=== PATIENT | female | born 1970 | race Caucasian/White ===

== ENCOUNTER 2024-07-21 20:15 | Outpatient (CLI) | payer OTHER, SELFPAY ==
--- OUTSIDE RECORDS SUMMARY | 2024-07-21 20:21 | XMS_ITS | Clinical Summary ---
Author Organization [employer] [facility] Address [place], [place] [address] Care Team Providers Care Optometric Tech Name Role Phone Morales Arreola MD Unavailable Nereida Pratt NP Primary Care Provider Freya Anton Unavailable Frank Avila MD Unavailable Reina Monte RN Unavailable Allergies Active Allergy Reactions Criticality Noted Date Comments Chlorhexidine Hives 01/28/2018 Codeine Hives,Nausea Only 07/01/2007 Ketorolac Tromethamine Rash,Edema High 12/19/2017 Latex Rash Low 05/15/2014 Only if exposed for long periods of time per pt 11/08/23 Nitrofurantoin Hives 07/01/2007 Sulfamethoxazole-Trimetho prim Hives 07/01/2007 Sulfasalazine Hives 06/16/2011 Medications Medication Sig Dispensed Refills Start Date End Date Status Cranberry 400 mg capsule Take by mouth. Once daily 0 06/07/20 17 Active cholecalciferol (VITAMIN D3) 1,000 unit tablet Take by mouth. Active naproxen (ALEVE) 220 mg tablet Take 1 tablet by mouth every 8 hours if needed for Headache. 100 tablet 04/06/20 20 Active topiramate (TOPAMAX) 100 mg tablet Take 100 mg by mouth 2 times daily. 08/10/20 21 Active loperamide (IMODIUM) 2 mg capsuleIndications :Loose stools Take 4mg by mouth with 1st loose stool, then 2mg with each subsequent loose stool. Max 16 mg in 24 hrs 30 Capsule 10/13/20 21 Active Biotin 10,000 mcg capsule take once by oral route everyday in the a.m. 09/08/20 22 Active cyanocobalamin (VITAMIN B12) 500 mcg tablet take 1 tablet by oral route once everyday in the a.m. 09/08/20 22 Active Magnesium Gluconate 30 mg (550 mg) tab take 1 tablet by oral route every day in the p.m. 09/08/20 22 Active gabapentin (NEURONTIN) 300 mg capsule TAKE ONE CAPSULE BY MOUTH EVERY DAY FOR 3 DAYS THEN TAKE ONE CAPSULE BY MOUTH TWICE A DAY FOR 3 DAYS THEN TAKE ONE CAPSULE BY MOUTH THREE TI 06/12/20 23 Active cyclobenzaprine (FLEXERIL) 10 mg tabletIndications: Migraine syndrome Take 1/2 tab daily at bedtime. 30 Tablet 11 10/30/20 23 Active prochlorperazine (COMPAZINE) 10 mg tabletIndications: Nausea Take 1 Tablet (10 mg) by mouth every 6 hours if needed for Nausea/Vomiting. 30 Tablet 10/30/20 23 Active Cimetidine (TAGAMET) 800 mg tabletIndications: Marginal ulcer Take 1 Tablet (800 mg) by mouth at bedtime. 90 Tablet 3 10/30/20 23 Active pseudoephedrine HCl (SUDAFED ORAL) Take by mouth. Ac tive loratadine (CLARITIN) 10 mg tabletIndications: Seasonal allergies TAKE ONE TABLET BY MOUTH EVERY DAY . 90 Tablet 1 12/21/19 24 Active omeprazole (PRILOSEC) 40 mg Delayed-Release capsuleIndications :Gastric ulcer, unspecified chronicity, unspecified whether gastric ulcer hemorrhage or perforation present TAKE ONE CAPSULE BY MOUTH TWICE A DAY 180 Capsule 2 01/20/20 24 Active Tnndy-3-YKD-EPA-Fi sh Oil (Fish OiL) 1,000 mg (120 mg-180 mg) cap Take 2 Capsules by mouth. Active MULTIVITAMIN ORAL Take by mouth. Act clarence selenium 200 mcg cap Take by mouth. Active magnesium carb,citrate,oxide (MAGNESIUM COMPLEX ORAL) Take by mouth. Active Digestive Enzymes capsule Take by mouth. Active medication order composer Take 2 capsules. by mouth once daily. Sandra support Active medication order composer Take 1 Capsule by mouth once daily. Motility Activator Active busPIRone (BUSPAR) 15 mg tabletIndications: Anxiety Take 1 Tablet (15 mg) by mouth two times daily. 60 Tablet 5 05/08/20 24 Active Calcium Citrate 250 mg calcium tabletIndications: S/P gastric bypass TAKE TWO TABLETS BY MOUTH EVERY DAY . 180 Tablet 3 05/13/20 24 Active semaglutide (Wegovy) 0.25 mg/0.5 mL penIndications:Enc ounter for weight loss counseling Inject 0.25 mg subcutaneous once weekly. 2 mL 05/19/20 24 Active naratriptan (AMERGE) 2.5 mg tabletIndications: Migraine syndrome TAKE ONE TABLET BY MOUTH AT ONSET OF MIGRAINE, MAY REPEAT ONCE, GIVE AT A MINIMUM OF 4 HOURS APART MAXIMUM DOSE OF 5 MG IN 24 HOURS 30 Tablet 5 05/27/20 24 Active metFORMIN (GLUCOPHAGE XR) 500 mg Extended-Release tablet 1 tablet with dinner daily for 2 weeks then 2 tablets with dinner 06/25/20 24 Active nystatin-triamcino lone cream APPLY TO AFFECTED AREA(S) EVERY 4 TO 5 HOURS FOR 7 TO 14 DAYS 05/25/20 24 Active levothyroxine (SYNTHROID) 175 mcg tabletIndications: Acquired hypothyroidism Take 1 Tablet (175 mcg) by mouth before breakfast. 90 Tablet 3 07/01/20 24 Active zolpidem (AMBIEN) 10 mg tabletIndications: Insomnia, idiopathic TAKE ONE TABLET BY MOUTH AT BEDTIME 30 Tablet 07/07/20 24 Active citalopram (CELEXA) 10 mg tabletIndications: Anxiety and depression TAKE ONE TABLET BY MOUTH EVERY MORNING 30 Tablet 07/20/20 24 Active citalopram (CELEXA) 20 mg tabletIndications: Anxiety Take 1.5 Tablets (30 mg) by mouth every morning. 135 Tablet 3 10/30/20 23 024 Discontinued(*M ed complete/Regime n complete/Level of care change) zolpidem (AMBIEN) 10 mg tabletIndications: Insomnia, idiopathic TAKE ONE TABLET BY MOUTH AT BEDTIME 90 Tablet 3 12/24/19 24 024 Discontinued levothyroxine (SYNTHROID) 150 mcg tabletIndications: Acquired hypothyroidism Take 1 Tablet (150 mcg) by mouth before breakfast. 90 Tablet 3 06/04/ 024 Discontinued(*M ed complete/Regime n complete/Level of care change) citalopram (CELEXA) 10 mg tabletIndications: Anxiety and depression Take 1 Tablet (10 mg) by mouth once daily in the morning. 30 Tablet 06/30/20 24 024 Discontinued cephalexin (KEFLEX) 500 mg capsuleIndications :Skin infection Take 1 Capsule (500 mg) by mouth three times daily for 7 days. 21 Capsule 06/30/20 24 024 Active Problems Problem Noted Date Diagnosed Date Anal fissure 07/10/2018 History of lung cancer 03/07/2018 Anxiety and depression 10/18/2017 Fracture of proximal end of femur, right, closed, initial encounter 10/18/2017 Chronic right-sided low back pain with right-tressa ed sciatica 10/18/2017 Insomnia 10/18/2017 Axillary mass, left 10/16/2017 Metastatic cancer to bone 10/15/2017 Overview: Right hip-- had removal, radiation and replacement of hip. In remission. Bulge of lumbar discs L3-S1 without myelopathy 1 11/27/2016 Trochanteric bursitis of right hip 09/27/2017 Acute right-sided low back pain with right-sided sciatica 08/22/2017 Vaginal atrophy 03/16/2017 Iron deficiency anemia 05/22/2013 Migraine, unspecified, witho ut mention of intractable migraine without mention of status migrainosus 08/21/2007 Dysthymic disorder 08/21/2007 Hypothyroidism 08/21/2007 S/P gastric bypass Overview: Beginning weight 213 lb Lactose intolerance GERD (gastroesophageal reflux disease) Vitamin D deficiency Marginal ulcer Resolved Problems Problem Noted Date Diagnosed Date Resolved Date Abnormal mammogram 08/22/2017 7 Intractable migraine without aura and with status migrainosus 03/06/2017 10/18/2017 Elevated glucose 12/07/2016 10/18/2017 JOSUE (generalized anxiety disorder) 09/15/2015 10/18/2017 Anxiety 08/09/2015 09/15/2015 Menorrhagia 05/22/2014 03/12/2015 Encounters Date Type Department Care Team Description 07/17/[address] [address] Sergey Jiménez NP Refill Request (Zolpidem) 07/17/[address] [address] Nereida Pratt NP Refill Request (Citalopram) 07/16/2024 Telephone [facility] [address] [place] [address] Araceli Hebert NP Appointment 07/15/2024 1:15 PM CDT Telemedicine [facility] [address] [place] [address] Araceli Hebert NP Telehealth (Consult =sleep concerns) 07/14/2024 Travel 07/09/2024 2:00 PM CDT Ancillary Procedure [address] [address] 07/09/2024 12:25 PM CDT Telemedicine [facility] [address] [place] [address] Leland Nieto MD Shoulder Pain/problem 07/09/2024 10:45 AM CDT Telemedicine [facility] [address] [place] [address] Leland Nieto MD Shoulder Pain/problem 07/09/2024 Travel 07/08/2024 Nurse Triage [address] [address] Nereida Pratt NP Shoulder Pain/problem 07/08/[address] [address] Nereida Pratt NP Imaging (Xray- right shoulder) 07/04/[address] [address] Nereida Pratt NP Refill Request (Zolpidem) 06/30/2024 1:10 PM CDT Office Visit [address] [place] [address] Nereida Pratt NP Recheck (thyroid) 06/30/2024 Travel 06/27/2024 Travel 06/25/[address] [place] [address] Nereida Pratt NP Form 06/18/2024 1:00 PM CDT Patient Outreach [address] [address] Focused Care Management 06/18/[address] [address] Nereida Pratt NP Results (Dexa scan) 06/17/2024 2:00 PM CDT Ancillary Procedure [address] [address] 06/17/2024 Travel 06/12/2024 Orders Only [facility] Scanner 1 scan: (1-Ord) [facility] 06/12/2024 Transcribe Orders [facility] [address] [place] [address] Araceli Jaimes PA 05/25/[address] [address] Nereida Pratt NP Refill Request (Naratriptan) 05/21/2024 1:00 PM CDT Patient Outreach [address] [address] Focused Care Management (Anxiety/Acquired hypothyroidism) 05/20/2024 10:30 AM CDT Nutrition/Pocketbook Maker [facility] [address] [place] [address] Medical Nutrition Therapy; Telehealth 05/20/2024 Travel 05/19/[address] [address] Nereida Pratt NP Medication Management (Pharmacy Clarification - Wegovy) 05/11/[address] [address] Nereida Pratt NP Refill Request (Calcium Citrate) 05/06/[address] [address] Nereida Pratt NP Error-please disregard 05/05/2024 Telephone [facility] [address] [place] [address] Mitchell Smith MD Referral 04/28/2024 1:30 PM CDT Office Visit [address] [address] eNreida Pratt NP Medication Management (thyroid) 04/28/[address] [address] Nereida Pratt NP Questions (Why provider thinks her thyroid not getting better?) 04/28/2024 Travel 04/23/2024 1:00 PM CDT Patient Outreach [address] [address] Focused Care Management (Anxiety and depression/Acquired hypothyroidism) 04/23/2024 Travel from Last 3 Months Immunizations Name Administration Dates Next Due AMB Influenza, IIV4 PF (=>6 mos Flulaval,Fluzone Fluarix)(Flu Clinic Only) 08/21/2014 COVID-19 vaccine (Moderna 100mcg/0.5mL) PF, MDV 02/09/2021,01/11/2021 Hepatitis B (Adult) 12/27/1996,07/31/1996,1995 Hepatitis B, Unspecified 07/01/2004 Influenza Virus, Unspecified 08/27/2019, 09/26/2018,08/11/2009,2007 Influenza, IIV3 (Age 6-35 mos) 0,08/27/2019,09/26/2018,2009 Influenza, IIV3 (Age >=3 years) 08/09/20 12,08/04/2011,08/26/2010,2008,09/02/2008,10/23/2007 Influenza, IIV4 12/18/2023, 2,08/29/2021,2017,08/14/2017,09/01/2016,09/24/2015,0 08/21/2014 Influenza,LAIV4 Live Intrana tomas (Flumist) 08/08/2013 MMR 08/05/2008,07/11/1995 Pneumococcal Conj 20-valent (Prevnar 20) 06/30/2024 Pneumococcal Poly,23-Valent (Pneumovax) 03/12/2015 Pneumococcal conj 13-Valent (Prevnar 13) 08/15/2018,10/29/2017 Td (Age >=7 Years) 08/08/2000 Tdap 02/03/2020,02/18/2010 Tuberculin (PPD) 06/16/2004 Zoster (Shingrix-RZV, recombinant) 08/01/2022, Family History Medical History Relation Name Comments Diabetes Father Hypertension Father Other Father cataracts Cancer-breast Maternal Aunt Relation Name Status Comments Brother Alive x3 Daughter Alive x4 Father Alive Maternal Aunt Maternal Grandfather Maternal Grandmother Alive Mother Alive Paternal Grandfather Paternal Grandmother Sister Alive x1 Social History Tobacco Use Types Packs/Day Years Used Date Smoking Tobacco: Never Passive Smoke Exposure: Never Smokeless Tobacco: Never Tobacco Cessation:Counseling Given: Not Answered Comments:Pt states nonsmoker and never smoked or history of smoking/vap or chew 11/08/23 Alcohol Use Standard Drinks/Week Comments Yes 0 (1 standard drink = 0.6 oz pur e alcohol) socially /monthly PHQ-2 Answer Date Recorded PHQ-2 TOTAL SCORE 4 04/06/2024 Social Connections Answer Date Recorded Frequency of Communication with Friends and Fami ly 0 06/30/2024 Financial Resource Strain Answer Date R ecorded Difficulty of Paying Living Expenses 3 06/30/2024 Difficulty of Paying Living Expenses Not on file 06/30/2024 Food Insecurity Answer Date Recorded Worried About Running Out of Food in the Last Ye ar 1 06/30/2024 Transportation Needs Answer Date Record ed Lack of Transportation (Medical) 1 06/30/2024 Housing Stability Answer Date Recorded Unable to Pay for Housing in the Last Year 1 06/30/2024 Sex and Gender Information Value Date Recorded Sex Assigned at Female 12/16/2020 10:52 AM [facility] DRIVER Gender Identity Female 12/16/2020 10:52 AM [facility] DRIVER Sexual Orientation Straight 12/16/2020 10 :52 AM [facility] DRIVER Obstetrics History Para Term AB IAB SAB Ectopic Multiple Livin g Live Births 4 4 4 Date Outcome GA Total Labor Labor/2nd/3rd Weight Sex Type Anes PTL Caryn A1 A5 Name Clin Para Para Para Para Last Filed Vital Signs Vital Sign Reading Time Taken Comments Blood Pressure 106/62 06/30/2024 1:32 PM CDT Pulse 84 06/30/2024 1:32 PM CDT Temperature 36.8 ??C (98.2 ??F) 11/08/2023 12:[address] Respiratory Rate 12 06/30/2024 1:32 PM CDT Oxygen Saturation 98% 03/20/2024 1:20 PM CDT Inhaled Oxygen Concentration - - Weight 71.2 kg (157 lb) 06/30/2024 1:32 PM CDT Height 154.9 cm (5' 1) 04/28/2024 1:42 PM CDT Body Mass Index 29.66 04/28/2024 1:42 PM CDT Plan of Treatment Upcoming Encounters Date Type Department Care Team (Late st Contact Info) Description 08/06/2024 2:30 PM CDT Preop Visit [facility] [address] [place] [address] Britt Varghese MD [address] [place] [address] 08/18/2024 1:45 PM CDT Hospital Encounter [facility] [address] [facility] [place] [address] Luis Vivas MD [address] [facility] [address] [place] [address] 08/18/2024 1:45 PM CDT - 08/18/2024 7:24 PM CDT Surgery [facility] [address] [place] [address] Luis Vivas MD [address] [facility] [address] [place] [address] Anterior Cervical Discectomy/Fusion Level: C3-T1 Side: Bilateral 09/11/2024 4:00 PM CDT Office Visit [address] [phone] Miriam Dutta MD [address] [facility] [address] [place] [address] 09/16/2024 1:15 PM CDT Telemedicine [facility] [address] [place] [address] Araceli Hebert NP [address] [place] [address] 09/23/2024 1:20 PM CDT Office Visit [address] [phone] Nereida Pratt, RILEY [address] [place], [place] [phone] Scheduled Procedures Name Priority Associated Diagnoses Date/Ti me FUSION DISCECTOMY ANTERIOR CERVICAL 05 Stenosis, Radiculopathy 08/18/2024 1:45 PM CDT DECOMPRESSION SPINE LEVEL 05 Stenosis, Radiculopathy 08/18/2024 1:45 PM CDT FUSION POSTERIOR SPINE LEVEL 05 Stenosis, Radiculopathy 08/18/2024 1:45 PM CDT Health Maintenance Due Date Last Done Comments COVID-19 vaccine series ( season) 2023 11/23/2021, 02/09/2021, 01/11/2021 Influenza for age 50-64 07/27/2024 12/18/19 24, 09/21/2022, 08/29/2021, Additional history exists Mammogram for age 45-75 09/10/2024 09/10/20 23, 08/29/2022, 06/01/2021, Additional history exists Depression screening for age 12+ 04/06/2025 04/06/2024, 04/03/2024, 03/27/2024, Additional history exists BMI (ht and wt on same day) for age 18+ 04/28/2025 04/28/2024, 10/30/2023, 06/19/2023, Additional history exists Lipids for age 45-75 08/01/2027 08/01/2022, 04/14/2016, 03/12/2015, Additional history exists Tetanus booster 02/02/2030 02/03/2020, 01/25, 08/08/2000 Colonoscopy through age 75 01/16/2033 01/16/2023 HIV for age 15-65 Completed 11/27/2017, 01/15/2017 Hepatitis C screening for ag e 18-79 Completed 09/10/2019 Tdap Completed 02/03/2020, 02/18/2010 Zoster (shingles) series for age 50+ Completed 08/01/2022, 05/25/2022 Pneumococcal series for age 6-64 Completed 06/30/2024, 08/15/2018, 10/29/2017, Additional history exists Procedures Procedure Name Priority Date/Time Associated Diagnosis Comments XR SHOULDER 3 VIEWS RIGHT Routine 07/09/2024 2:11 PM CDT Right shoulder pain, unspecified chronicity TSH Routine 06/30/2024 2:51 PM CDT Acquired hypothyroidism XR DXA BONE DENSITY 2 SITES AXIAL Routine 06/17/2024 2:43 PM CDT Osteopenia, unspecified location SCAN-ELECTROMYOGRA M EMG 06/12/2024 12:00 AM CDT TSH Routine 04/28/2024 2:16 PM CDT Acquired hypothyroidism XR MAMMO RAMOS BILAT SCREEN Routine 09/10/2023 2:25 PM CDT Encounter for other screening for malignant neoplasm of breast SCAN-COLONOSCOPY 01/16/2023 10:3 0 AM [facility] DRIVER LIPID PANEL Routine 08/01/2022 1:48 PM CDT Lipid screening ACUTE HEPATITIS PANEL Add On 09/10/2019 2:32 PM CDT Abnormal liver function test ANTI HIV 1/2 Routine 11/27/2017 12:58 PM [facility] A DRIVER Screening for STD (sexually transmitted disease) from Last 3 Months or Most Recently Relevant to Health Maintenance Results * XR SHOULDER 3 VIEWS RIGHT (07/09/2024 2:11 PM CDT) Anatomical Region Laterality Modality SHOULDERS, SHOULDER R Computed R adiography 07/10/2024 6:46 AM CDT Narrative 07/10/2024 6:46 AM CDT For Patients: ??As a result of the Cures Act, medical imaging exams and procedure reports are released immediately into your electronic medical record. ??You may view this report before your referring provider. ??If you have questions, please contact your health care provider. INDICATION: Chronic right shoulder pain. TECHNIQUE: Three views right shoulder. FINDINGS: Mild glenohumeral and AC joint arthropathy. Soft tissue spurring lateral acromion and lateral articular surface of the humeral head. No fracture, dislocation or lytic bone destruction. Dictated by Maria Del Carmen Kong MD @ 07/10/2024 6:46:24 AM (Electronically Signed) Procedure Note Toi Kong MD - 07/10/2024 For Patients: As a result of the Cures Act, medical imagingexams and procedure reports are released immediately into your electronicmedical record. You may view this report before your referring provider.If you have questions, please contact your health care provider. INDICATION: Chronic right shoulder pain. TECHNIQUE: Three views right shoulder. FINDINGS: Mild glenohumeral and AC joint arthropathy. Soft tissue spurring lateralacromion and lateral articular surface of the humeral head. No fracture,dislocation or lytic bone destruction. Dictated by Maria Del Carmen Kong MD @ 07/10/2024 6:46:24 AM (Electronically Signed) Leland Nieto MD GENERAL IMAGING * (ABNORMAL) TSH (06/30/2024 2:51 PM CDT) Only the most recent of2 resultswithin the time period is included. TSH 4.55(H) 0.27 - 4.20 uIU/mL 06/30/2024 4:20 PM CDT [facility] Blood BLOOD SPECIMEN / Unknown Venipuncture / Unknown 06/30/2024 2:51 PM CDT 06/30/2024 2:54 PM CDT [facility] - 06/30/2024 4:20 PM CDT In Adults, TSH values between 5.00 and 10.00 uIU/ml do not necessarily indicate the presence of Hypothyroidism. Correlation with clinical findings such as presence of goiter and/or Thyroperoxidase (TPO) Antibody may be helpful. For more information please refer to FAWAD 2004; 291: 228-238. Nereida Pratt NP CHEMISTRY [facility] [address] [place] [address] * XR DXA BONE DENSITY 2 SITES AXIAL (06/17/2024 2:43 PM CDT) Anatomical Region Laterality Modality Spine, HIPS, HIPL, HIPR Computed Radiography 06/17/2024 4:42 PM CDT Impressions 06/18/2024 8:33 AM CDT Osteopenia. RECOMMENDATIONS: ??The National Osteoporosis Foundation recommends pharmacologic treatment for patients with T-scores of -2.5 or less, patients with prior history of fragility fractures, or patients with 10-year probability of greater than 3% at hips or greater than 20% of suffering major osteoporotic fractures. Recommend continued optimization of calcium and vitamin D intake through dietary means and/or supplementation and regular exercise. Renzo Weeks M.D. Diagnostic/Neuroradiologist [email or web address] LILIAI/loan Narrative 06/18/2024 8:33 AM CDT For Patients: Results are automatically released to your [employer] account once available, in compliance with federal regulations. This means that you may see your results before your provider has had a chance to review them. Please allow 2-3 business days for your provider to comment on the results. XR DXA Bone Mineral Density (BMD) EXAM LOCATION: [address] [phone] PATIENT NAME: Karin Edwards DATE OF : 1970 EXAM DATE: 06/17/2024 REQUESTING PROVIDER: Araceli Jaimes PA GENDER AT : female HEIGHT: 61 inches WEIGHT: 157 pounds MENOPAUSAL STATUS: Postmenopausal ?? RACE/ETHNICITY: White ?? RISK FACTORS: Bariatric Surgery, History of Fragility Fracture (at a major site), White Race, and Right Hip Surgery CURRENT MEDICATION FOR BONE LOSS: NONE INDICATION: Follow-up of existing osteopenia COMPARISON DATE(S): None DXA scans are compared to prior studies for a patient only when the two (or more) studies were performed on the same scanner. It is not possible to compare data generated on one scanner to data from another because there are not standards in DXA equipment. This applies even if the two scanners are made by the same clinical microbiologist. PROCEDURE: Dual-energy x-ray absorptiometry performed with routine technique. Reporting is completed in the form of a T-score. The T-score represents the standard deviation from peak bone mass based on young healthy adult. A Z-score is used for diagnosis in premenopausal women, and for men under the age of 50. FINDINGS: RESULT LUMBAR SPINE L1 - L4 BMD: 1.129 g/cm2 T-Score: - 0.4 Z-Score: + 0.0 RESULTS FEMUR Left femoral neck BMD: 0.845 g/cm2 T-Score: - 1.4 Z-Score: - 0.6 Left total hip BMD: 0.888 g/cm2 T-Score: - 1.0 Z-Score: - 0.5 WHO criteria: Normal: T-score at or above -1 SD Osteopenia: T-score between -1.1 and -2.4 SD Osteoporosis: T-score at or below -2.5 SD LEFT: FRAX RISK CALCULATION (USED FOR OSTEOPENIA ONLY): 10-year probability of major osteoporotic fracture: 5.5%. 10-year probability of hip fracture: 0.4%. Araceli CARTER DEXA * SCAN-ELECTROMYOGRAM EMG (06/12/2024 12:00 AM CDT) Scanner OTHER * XR MAMMO RAMOS BILAT SCREEN (09/10/2023 2:25 PM CDT) Anatomical Region Laterality Modality BREASTS, Breast Left, Breast Right Bilateral Mammography Impressions 09/11/2023 6:35 AM CDT ??There is no radiographic evidence for malignancy. ??Recommend annual mammograms. MAMMOGRAM ASSESSMENT: ??ACR 1 Negative PATIENTS: You will also receive a letter with your examination results in an easy to read format. ??If you have questions about your results, please contact your referring provider. Narrative 09/11/2023 6:35 AM CDT For Patients: As a result of the Century Cures Act, medical imaging exams and procedure reports are released immediately into your electronic medical record. You may view this report before your referring provider. If you have questions, please contact your health care provider. XR MAMMO RAMOS BILAT SCREEN [[id number]] CLINICAL HISTORY: ??This is an asymptomatic 53 y.o. patient. INDICATION FOR EXAM: Mammogram Screening. TECHNIQUE: CC & MLO views were obtained. ??This study was evaluated with the assistance of Computer-Aided Detection. Breast Tomosynthesis was used in interpretation. COMPARISON FILM: Yes 08/29/22 ? FINDINGS: ??The breasts are heterogeneously dense, which may obscure small masses. There are no dominant masses, suspicious micro calcifications or areas of architectural distortion. Nereida Pratt NP MAMMO * SCAN-COLONOSCOPY (01/16/2023 10:30 AM [facility] A DRIVER) Narrative Procedure Note Tran, Lex Brantley, MD - 01/16/2023 9:40 AM CST [facility] [address] [place] [address], [address], [place] [address] Patient Name: Karin Edwards (Jenni) Gender: Female Exam Date: 01/16/2023 Visit Number: [id number] Age: 52 Years 7 Months Date of : 1970 Attending MD: Lex Tran MD Medical Record#: [id number] ----- Procedure: Colonoscopy Indications: Colorectal cancer screening Referring MD: Referral Self Primary MD: Nereida Pratt FINANCIAL ANALYST INTERN Medications: Admitting Medications: 0.9% Normal Saline at [facility] Intra Procedure Medications: Patient received monitored anesthesia care. Complications: No immediate complications Procedure: An examination of the heart and lungs was performed and found to be withinacceptable limits. The patient was therefore deemed a reasonablecandidate for endoscopy and monitored anesthesia care. The risks and benefits of the procedure were explained to the patient.After obtaining informed consent, the patient received monitoredanesthesia care and I passed the scope without difficulty via the rectum to the cecum. The appendiceal orificeand ic valve were identified. The scope was retroflexed during theexamination The quality of the prep was good (Flavio/Gat Double Split). This was a complete examination throughout the entire colon. Findings: Diverticulosis. Location: - ascending colon. Size: medium.Quantity: several. Anal canal: normal Remainder of the exam is normal. Impression: Diverticulosis of colon Plan Repeat colonoscopy in 10 years for colon cancer screening. If you have signs or symptoms of lower GI illness or a new diagnosis ofcolon cancer in an immediate family member, you should contact your GIprovider or your primary provider to discuss whether your next examshould be repeated sooner. We will attempt to contact you at appropriate intervals via U.S. mail. Wemay not be able to find you or contact you at that time, therefore youshould know that the responsibility for following our recommendation restswith you. If you don't hear from us at the time your procedure is due,please contact our office to schedule an appointment. If your contactinformation should change, please contact our office so that we can updateyour records. Electronically signed by: Lex Tran MD 01/16/2023 Medications: Medication Dose Sig Description PRN Status PRN Reason Comments Aleve UNKNOWN take 1 tablet by oral route once every day as needed Ntaking as directed biotin 10,000 mcg capsule 10,000 mcg take once by oral route everyday inthe a.m. N taking as directed calcium citrate 200 mg (950 mg) tablet 200 mg (950 mg) N taking asdirected cimetidine 800 mg tablet 800 mg take 1 tablet by oral route every day inthe p.m. N taking as directed citalopram 40 mg tablet 40 mg take 1 tablet by oral route every day inthe a.m. N taking as directed cranberry 500 mg capsule 500 mg take everyday in the a.m. N taking asdirected Herbal Medications/Supplements unknown unknown Refresh eyedrops drop oncein each eyes in the a.m. N taking as directed iron 325 mg (65 mg iron) tablet 325 mg (65 mg iron) take 1 tablet by oralroute every day in the a.m. N taking as directed levothyroxine 112 mcg capsule 112 mcg take 1 capsule by oral route everyday in the a.m. N taking as directed magnesium UNKNOWN take 1 tablet by oral route every day in the p.m. Ntaking as directed naratriptan 2.5 mg tablet 2.5 mg take 1 tablet by oral route once mayrepeat after 4 hours N taking as directed omeprazole 40 mg capsule,delayed release 40 mg take 1 capsule by oralroute 2 times daily- 30 minutes before breakfast and 30 minutes beforedinner N taking as directed omeprazole 20 mg tablet,delayed release 20 mg take 1 tablet by oral routeevery day in the a.m. N taking as directed topiramate UNKNOWN (400 mg) take 4 tablet by oral route 2 a.m. and 2 p.m.every day N taking as directed cyanocobalamin (vit B-12) 500 mcg tablet 500 mcg take 1 tablet by oralroute once everyday in the a.m. N taking as directed Vitamin D3 125 mcg (5,000 unit) tablet 125 mcg (5,000 unit) take 1 tabletby oral route every day in the a.m. N taking as directed zolpidem 10 mg tablet 10 mg take 1 tablet by oral route every day in thep.m. N taking as directed Allergies: Medication Name Ingredient Reaction Comment Macrobid NITROFURANTOIN MACROCRYSTALLINE Sulfa SULFA (SULFONAMIDE ANTIBIOTICS) Rash LATEX Rash Vital Signs: Date Time Systolic Diastolic Height Weight BMI 01/16/2023 10:00 AM 109 60 61 in 146.39 27.70 Race: White Preferred Language: [place] cc: Nereida Pratt [facility] [phone] Lex Tran MD OTHER * LIPID PANEL (08/01/2022 1:48 PM CDT) [facility] CHOLESTEROL,TOTAL 199 100 - 199 mg/dL 08/01/2022 2:32 PM T [facility] TRIGLYCERIDES 105 <150 mg/dL 08/01/2022 2:32 PM T [facility] HDL CHOLESTEROL 59 >40 mg/dL 2:32 PM T [facility] NON-HDL CHOLESTEROL 140 <145 mg/dl 08/01/2022 2:32 PM T [facility] CHOL/HDL RATIO 3.37 <4.50 08/01/2022 2:32 PM T [facility] LDL CHOLESTEROL 119 <=130 mg/dL 08/01/2022 2:32 PM CDT [facility] VLDL CHOLESTEROL 21 <=30 mg/dL 08/01/2022 2:32 PM CDT [facility] PROVIDER ORDERED STATUS RANDOM 08/01/2022 2:32 PM CDT [facility] Blood BLOOD SPECIMEN / Unknown Venipuncture / Unknown 08/01/2022 1:48 PM CDT 08/01/2022 1:49 PM CDT Nereida Pratt COMPO CONVEYOR OPERATOR CHEMISTRY [facility] [address] [place] [address] * ACUTE HEPATITIS PANEL (09/10/2019 2:32 PM CDT) HEPATITIS C ANTIBODY Non-Reactive Non-Reactive 09/10/2019 6:48 PM CDT [facility] Comment:Antibodies to HCV no t detected; does not exclude the possibility of exposure to HCV. IGM ANTI HAV Non-Reactive Non-Reactive 09/10/20 19 6:48 PM CDT [facility] HBSAG Nonreactive Nonreactive 09/10/2019 6:48 PM CDT [facility] IGM ANTI HBC Non-Reactive Non-Reactive 09/10/20 19 6:48 PM CDT [facility] Blood BLOOD SPECIMEN / Unknown Venipuncture / Unknown 09/10/2019 2:32 PM CDT 09/10/2019 2:34 PM CDT Narrative [facility] - 09/10/2019 6:48 PM CDT Anti-HBc IgM not detected. Does not exclude the possibility of exposure to or infection with HBV. Camilla Mckenna MD SEND OUTS Performing Organization Address City/[facility]/ZIP Co de Phone Number [facility] [address] [place] [address], [place] * ANTI HIV 1/2 (11/27/2017 12:58 PM PORT CDL A DRIVER) HIV-1/HIV-2 ANTIBODY Non-Reacti ve Non-Reacti ve 11/27/2017 8:53 PM PORT CDL A DRIVER [facility] Blood BLOOD SPECIMEN / Unknown Venipuncture / Unknown 11/27/2017 12:58 PM PORT CDL A DRIVER 11/27/2017 12:58 PM PORT CDL A DRIVER Narrative [facility] - 11/27/2017 8:53 PM PORT CDL A DRIVER HIV-1 p24 and HIV-1/HIV-2 Ab not detected Ravinder CARTER SEND OUTS [facility] [address] [place] [address], from Last 3 Months or Most Recently Relevant to Health Maintenance Advance Directives * Full Code (Latest Code Status on File) Date Activated Date Inactivated Comments 10/04/2021 11:08 AM 10/04/2021 3:24 PM Question Answer Comments Code Status Discussion: Discussed * Full Code Date Activated Date Inactivated Comments 02/11/2019 6:40 AM 02/11/2019 12:39 PM Question Answer Comments Code Status Discussion: Not Discussed * Full Code Date Activated Date Inactivated Comments 10/18/2017 1:31 AM 10/18/2017 12:21 PM Question Answer Comments Code Status Discussion: Discussed * Full Code Date Activated Date Inactivated Comments 05/25/2014 9:43 AM 05/25/2014 2:34 PM Care Teams Optometric Tech Relationship Specialty Start Date End Date Nereida Pratt NP [address] [place] [address] PCP - General Family Practice 12/24/17 Morales Arreola MD [address] [place] [address] Rheumatology Rheumatology 07/20/17 Freya Anton MBBS [address] [address] Internal Medicine 10/15/18 Frank Avila MD [address] [place] [address] Hematology 05/30/22 Reina Mnote, DIO [address] [place] [address] Registered Nurse 04/03/24
--- OUTSIDE RECORDS SUMMARY | 2024-07-21 20:21 | XMS_ITS | Encounter Summary ---
Author Organization [facility] Address [address] [place] [phone] Phone Care Team Providers Care Environmental Web Crawler Name Role Phone Nereida Pratt APRN, WIRER MAINTENANCE Primary Care Provi lowell Reason for Visit * Prior Authorization (Routine) - Closed Specialty Diagnoses / Procedures Referred By Jhon cooper Referred To Contact Radiology / RADIOLOGY Diagnoses Headache, unspecified Other chronic pain Malignant neoplasm of unspecified part of right bronchus or lung Cervicalgia Chronic nonintractable headache, unspecified headache type [R51.9, G89.29] Neck pain [M54.2] Adenocarcinoma of right lung, stage 4 (CMS/HHS) [C34.91] Procedures CHG MRI BRAIN BRAIN STEM W/O W/CONTRAST MATERIAL CHG MRI ORBIT FACE & NECK W/O & W/CONTRAST MATRL MR NECK W/O + W/CONTRAST [51030 (CPT??)] Mri [facility] [address] [place] [address] [address] [place] [address] Referral ID Status Reason Start Date Expiration Date Visits Re quested Visits Authorized [id number] Closed 2 2 Encounter Details Date Type Department Care Team (Latest Contact Info) Description 06/08/2024 7:36 AM CDT - 06/08/2024 11:59 PM CDT Hospital Encounter [facility] MRI [address] [place], [place] [id number] Pradip Sampson MD [address] [place] [id number] Discharge Disposition: Discharged to home or self care Social History Tobacco Use Types Packs/Day Years Used Date Smoking Tobacco: Former Cigarettes 1 12 1 12/30/1984 - 10/29/1995 Smokeless Tobacco: Former Alcohol Use Standard Drinks/Week Comments Yes 1 (1 standard drink = 0.6 oz pur e alcohol) PHQ-2 Answer Date Recorded PHQ-2 Subtotal 0 10/26/2020 Sex and Gender Information Value Date Recorded Sex Assigned at Female 05/09/2021 9:29 AM CDT Gender Identity Female 05/09/2021 9:29 AM CDT Sexual Orientation Straight 05/09/2021 9: 29 AM CDT documented as of this encounter Medications at Time of Discharge Medication Sig Dispensed Refills Start Date End Date levothyroxine (SYNTHROID) 125 mcg oral tablet Take 1 tablet (125 mcg) by mouth daily before morning meal. 03/23/2024 MAGNESIUM MALATE ORAL Take by mouth. Biotin 10 MG oral capsule take once by oral route everyday in the a.m. 09/08/2022 loperamide (IMODIUM) 2 mg oral capsuleIndications:Jess nocarcinoma of right lung, stage 4 (CMS/HHS) Take 2 capsules (4 mg) by mouth at onset of symptoms, then Take 1 capsule (2 mg) by mouth as needed for diarrhea. Do NOT take more than 8 capsules (16 mg) in 24 hours. 50 capsule 12 07/13/2022 zolpidem (AMBIEN) 10 mg oral TABS Take 1 tablet (10 mg) by mouth at bedtime. 04/17/2022 cimetidine (TAGAMET) 800 mg oral TABS Take 1 tablet (800 mg) by mouth. 10/24/2021 citalopram (CELEXA) 10 mg oral TABS Take 3 tablets (30 mg) by mouth. 05/09/2021 loratadine (CLARITIN) 10 mg oral tablet Take 1 tablet (10 mg) by mouth daily. topiramate (TOPAMAX) 100 mg oral tablet Take 1 tablet (100 mg) by mouth twice daily.Takes 75 mg BID tab-a-sheri oral tablet Take 1 tablet by mouth daily. naratriptan (AMERGE) 2.5 mg oral tablet Take 2.5 mg by mouth twice daily as needed. prochlorperazine (COMPAZINE) 10 mg oral tablet TAKE ONE TABLET BY MOUTH EVERY 6 HOURS NEEDED FOR NAUSEA/VOMITING. MAX DOSE OF 4 TABLETS PER 24 HOURS 30 tablet 12 08/07/2019 Cyanocobalamin (VITAMIN B12 ORAL) Take 1 tablet by mouth daily. calcium-vitamin d (SHEBA CALCIUM-VITAMIN D) 600-200 MG-UNIT oral tablet Take 1 tablet by mouth daily. omeprazole (PRILOSEC) 20 mg oral capsuleIndications:Hea rtburn Take 1 capsule (20 mg) by mouth daily. Indications: HeartburnDo not crush. CHOLEcalciferol (VITAMIN D3) 1000 UNIT oral tablet Take 5 tablets (5,000 UNITS) by mouth daily. documented as of this encounter Plan of Treatment Upcoming Encounters Date Type Department Care Team (Latest Contact Info) Description 09/15/2024 9:30 AM CDT Appointment Clinic [facility]ty [facility] [address] [place] [id number] Scheduled Discharge Disposition: Discharged to home or self care 09/15/2024 10:30 AM CDT Appointment [facility] CT [address] [place] [address] Pradip Sampson MD [address] [place] [address] Scheduled Discharge Disposition: Discharged to home or self care 09/15/2024 11:30 AM CDT Appointment Clinic [facility] Specialty Center [facility] [address] [address] Pradip Sampson MD [address] [place] [id number] Scheduled Discharge Disposition: Discharged to home or self care documented as of this encounter Procedures Procedure Name Priority Date/Time Associated Diagnosis Comments MR SPINE CERVICAL W/O + W/CON Routine 06/08/2024 9:17 AM CDT Chronic nonintractable headache, unspecified headache type Neck pain Adenocarcinoma of right lung, stage 4 (CMS/HHS) documented in this encounter Results * MR SPINE CERVICAL W/O + W/CON (06/08/2024 9:17 AM CDT) Anatomical Region Laterality Modality Cervical Spine Magnetic Resonan ce 06/08/2024 9:20 AM CDT Impressions 06/09/2024 12:08 PM CDT Impression: ?? 1. No evidence of metastatic tumor. 2. Mild to moderate degenerative changes greatest on the left at C6-7. Possible left C7 nerve root impingement. There is also moderate degenerative facet change on the right at C2-3 and C3-4. Reading Radiologist: Rik Cornejo 06/09/2024 12:08 PM CDT MRI of the Cervical Spine without and with contrast Indication: head and neck pain, Hx NSCLC ??. Comparison: none Technique: Sagittal T1-weighted and T2-weighted and axial T2-weighted gradient echo images of the cervical spine were obtained without intravenous contrast. Following intravenous administration of gadolinium, axial and sagittal T1-weighted images with fat saturation were also obtained. Findings: There is motion artifact on several sequences. Regarding alignment, craniocervical lordosis. ??There is mild disc space narrowing between C5 and C7. ??There is no abnormal signal within the cervical spinal cord at any level. The findings on a level by level basis are as follows: C2-3: ??Moderate facet arthropathy greater on the right. No central or foraminal stenosis. C3-4: ??Moderate facet arthropathy greater on the right. Mild foraminal narrowing greater on the left. No central stenosis. C4-5: ??There is no focal abnormality. C5-6: ??Mild diffuse disc bulge and facet arthropathy. Mild foraminal narrowing. No central stenosis. C6-7: ??Moderate disc bulge and mild facet arthropathy. Mild to moderate central and foraminal narrowing greater on the left. Possible left C7 nerve root impingement. C7-T1: Mild facet arthropathy. Mild foraminal narrowing. No central stenosis. Postcontrast images demonstrate no definite abnormal enhancement of the vertebra, spinal cord, or within the visualized paraspinous tissues. ??No evidence of metastatic disease in the cervical spine. Visualized paraspinal soft tissues are normal. Procedure Note Rik Cornejo MD - 06/09/2024 MRI of the Cervical Spine without and with contrast Indication: head and neck pain, Hx NSCLC . Comparison: none Technique: Sagittal T1-weighted and T2-weighted and axial T2-weightedgradient echo images of the cervical spine were obtained withoutintravenous contrast. Following intravenous administration of gadolinium,axial and sagittal T1-weighted images with fat saturation were alsoobtained. Findings: There is motion artifact on several sequences. Regardingalignment, craniocervical lordosis. There is mild disc space narrowingbetween C5 and C7. There is no abnormal signal within the cervical spinalcord at any level. The findings on a level by level basis are as follows: C2-3: Moderate facet arthropathy greater on the right. No central orforaminal stenosis. C3-4: Moderate facet arthropathy greater on the right. Mild foraminalnarrowing greater on the left. No central stenosis. C4-5: There is no focal abnormality. C5-6: Mild diffuse disc bulge and facet arthropathy. Mild foraminalnarrowing. No central stenosis. C6-7: Moderate disc bulge and mild facet arthropathy. Mild to moderatecentral and foraminal narrowing greater on the left. Possible left [id number] root impingement. C7-T1: Mild facet arthropathy. Mild foraminal narrowing. No centralstenosis. Postcontrast images demonstrate no definite abnormal enhancement of thevertebra, spinal cord, or within the visualized paraspinous tissues. Noevidence of metastatic disease in the cervical spine. Visualizedparaspinal soft tissues are normal. IMPRESSION Impression: 1. No evidence of metastatic tumor. 2. Mild to moderate degenerative changes greatest on the left at C6-7.Possible left C7 nerve root impingement. There is also moderatedegenerative facet change on the right at C2-3 and C3-4. Reading Radiologist: Rik Cornejo Pradip Sampson MD RAD MR NEURO documented in this encounter Visit Diagnoses Diagnosis Chronic nonintractable headache, unspecified headache type Neck pain Cervicalgia Adenocarcinoma of right lung, stage 4 (CMS/HHS) documented in this encounter Administered Medications Inactive Administered Medications - up to 3 most recent administrations Medication Order MAR Action Action Date Dose Rate Site gadobutrol (GADAVIST) 1 mmol/mL injection 0-15 mL 0-15 mL, IV Push, RAD ONE TIME AUTO ACKNOWLEDGE, 1 dose, On 06/08/24 at 0900 Given 06/08/2024 8:57 AM CDT 3.5 mL Right Arm documented in this encounter Additional Health Concerns Assessment Noted Time PHQ-2 Depression Total Score: 0 10/26/20 20 10:46 AM TEAMSITE DEVELOPER documented as of this encounter Care Teams Environmental Web Crawler Relationship Specialty Start Date End Date Nereida Pratt, EMBROIDERER HAND, WIRER MAINTENANCE [address] [place] [address] [place] [address] PCP - General Outside Provider 10/10/18 documented as of this encounter
--- OUTSIDE RECORDS SUMMARY | 2024-07-21 20:21 | XMS_ITS ---
Author Organization [facility] Address [address] [place] [address] Phone Care Team Providers Care Facsimile Operator Name Role Phone Nereida Pratt APRN, [employer] Primary Care Provi lowell Active Problems Problem Noted Date Diagnosed Date Right hand pain 08/31/2020 Last Assessment & Plan: 50 y.o. RHD female with right hand osteoarthritis with acute on chronic pain likely secondary to virus illness. - Discussed conservative management including OT, oral anti-inflammatories, and steroid injections. - Continue activities as tolerated - Ordered OT - Encouraged right hand finger ROM - Rx'd voltaren gel - Rest, ice, and OTC pain mgmt as needed - Follow up as needed Malignant neoplasm metastati c to left adrenal gland (CMS/HHS) 06/19/2019 Migraine, chronic, without aura 06/17/2019 Chronic right shoulder pain 03/12/2019 Last Assessment & Plan: 48yo RHD F with right AC joint arthritis. -Discussed conservative mgmt via PT vs injection, and patient amenable. Reassured that her shoulder imaging was negative for metastatic lesions. -Given right AC joint steroid injection, well-tolerated -Continue activities as tolerated -Referral to PT for ROM, strength -Rest, ice, and OTC pain mgmt as needed -Follow up as needed History of total hip replacement, right 10/09/20 Last Assessment & Plan: 47 y.o. female 1 year s/p R NEETA secondary to right femoral neck fracture presenting for yearly follow up. Doing well today. Of note, patient is undergoing radiation and chemotherapy for lung cancer. - Cont WBAT RLE and activities as tolerated - Cont PT for ROM improvement - RTC in 1 year with new XRs Orthostatic hypotension 08/15/2018 Healthcare maintenance 08/15/2018 Last Assessment & Plan: Received Flu shot 09/26/18. Cyst of right ovary 06/11/2018 Last Assessment & Plan: Hypermetabolic nodules seen on PET CT 05/16/18. Pelvic US 05/28/18 shows simple cyst and hemorrhagic cyst. CA125 is normal 06/11/2018 . She had more RLQ pain on 07/15/18, went to [facility] ED, had CT and US showing complex right ovarian cyst. PET/CT 08/06/18 shows very low level activity in the RLQ cyst.??[facility] visit on 08/15/18 showed no problems, she reports no recurrence of pain.they advised repeat pelvic US in late September. She did not make this appt. CT CAP 09/27/18 and 12/24/2018 showed hysterectomy, no other comment made. Low serum cortisol level 02/27/2018 Last Assessment & Plan: KETRUDA can cause pituitary or adrenal failure. Cortisol level low at 1.2 on 02/27/18. Has had varying levels since starting pembrolizumab (KEYTRUDA). Level 02/27/18 was not reliable since she took decadron that morning and the prior evening premed to her pemetrexed chemotherapy regimen. Had cosyntropin stimulation test for adrenal insufficiency on 03/13/18, approx 10 days after she stopped her decadron,??and this cosyntropin stimulation test showed no sign of adrenal insufficiency. Cortisol level normal 07/24/18 at 10.6. ?? She has long standing low BP. She has symptoms of lightheadedness with standing. ACTH stim test normal 09/05/18. Was getting IVF closer to home day after Keytruda as above, CT CAP 09/27/18 showed no active cancer. Subsequent cortisol levels have been WNL. Lab Results Component Value Date MARLENE 8.4 01/16/2019 MARLENE 12.7 12/24/2018 MARLENE 9.4 12/05/2018 MARLENE 10.8 11/12/2018 MARLENE 4.3 10/04/2018 Bacterial vaginosis 12/26/2017 Last Assessment & Plan: Patient reports recurrent bacterial vaginosis and vaginal yeast infection since starting chemo. She has a history of this for many years. On 12/26/17 she was given prescription for Flagyl 500 mg BID x7 days and fluconazole 100 mg daily x7 days. Having intermittent recurrent symptoms, refilled prescription for the fluconazole on 02/07/18. Symptoms had resolved at last visit 02/27/18, but 03/20/2018 she reported yeast infection symptoms again. Refilled fluconazole 03/20/18. Today 04/11/18 patient states she completed fluconazole but again had recurrent symptoms, she recently took an OTC treatment. 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 Will refer to [facility] for further evaluation of recurrent vaginal infections. Sinusitis 12/19/2017 Last Assessment & Plan: Having frequent sinus infection symptoms. MRI 12/24/18 did not show signs of acute sinusitis, no sign of brain mets. We referred to ENT. 01/30/19 patient notes improvement in symptoms. Acquired hypothyroidism 12/06/2017 Last Assessment & Plan: She had hypothyroidism at time of diagnosis, prior to starting KEYTRUDA. She was seen by Endocrinology on 06/13/18, recommended continuing levothyroxine 125mcg. Her TSH was low at 0.19 on 07/03/18. Levothyroxine was reduced to 112 mcg daily. She has been taking her levothyroxine 112 mcg 60 minutes before meals. 01/30/19 Today her TSH is within normal limits at 2.04 so will continue levothyroxine 112 mcg. Lab Results Component Value Date TSH 2.04 01/30/2019 TSH 0.41 01/16/2019 TSH 4.59 (H) 12/24/2018 TSH 6.06 (H) 12/05/2018 T4FREE 1.6 01/16/2019 T4FREE 1.3 12/05/2018 T4FREE 1.3 11/12/2018 T4FREE 1.3 08/15/2018 Adenocarcinoma of right lung, stage 4 (CMS/HHS) 10/29/2017 Last Assessment & Plan: T1N2M1 metastatic adenocarcinoma. She has a??rather small RUL lung cancer but with R hilar and subcarinal and paratracheal??adenopathy, and a solitary bone met. (oligometastatic disesase at Dx)The right hip surgery path tissue was sent for [facility] analysis but was too scant to work with. We arranged RUL lung Bx on 11/14/17, and we have sent tissue to [facility] for molecular analysis and PDL1 testing. It is marking strongly positive for PDL-1,??and has intermediate tumor mutation burden. This is good news.??It is MS-Stable. ??Molecular analysis for ALK, EGFR, ROS1 is negative. Staging indicates she has solitary bone metastasis to R femoral neck on [place]. She quit smoking ~1994, and only smoked for 10-12 years. She does not have any sx of the cancer in her chest She had R hip replacement 10/19/17. ?? PET CT 11/02/17 ruled out any other sites of metastatic disease. It showed sl uptake in right inguinal nodes; which was probably reactive. It showed right hilar nodes, and mediastinal nodes, and questionable right axillary node. Her MRI brain was clear. ?? For primary care, she was given a Prevnar 13 vaccine 10/29/17. She has already had a flu shot this fall and pneumovax 23 in past. Her Hgb A1C is good, no sign of prediabetes following??gastric bypass surgery. Iron and B12 levels are okay despite gastric bypass. ? She did receive XRT to right hip 11/27-11/28/17. We started ZOMETA 12/06/17. ?? She had oligo metastatic disease, but hopefully it is metastatic to only 1 site, the right hip, which was resected surgically.? On 12/06/17 we proceeded with carboplatin/pemetrexed and pembrolizumab ?? PET CT 02/05/18 showed marked positive response after 3 cycles of chemo with carbo/pemetrexed/pembrolizumab. Received cycle 4 of carbo/pemetrexed/pembrolizumab on 02/07/18 with NEULASTA. On 02/27/18 we changed Tx to pemetrexed/pembrolizumab (without carboplatin and neulasta). ?? She had significant side effects with her first 5 cycles of chemo including: N/V, diarrhea alternating with constipation, mouth sores, fatigue, poor appetite/weight loss and lightheadedness. With each cycle she had visits to her local ED at which time she received IVF's/electrolyte replacement and antiemetics. ? Unfortunately, on 03/20/18 she was still having significant nausea and vomiting for a week or more following pemetrexed+pembrolizumab. We double checked cortisol levels on 03/13/18, she had no signs of adrenal insufficiency. It is not known whether chemo plus immune therapy is better than immune therapy alone as maintenance treatment. Since she was having so much trouble with pemetrexed+pembrolizumab, on 03/20/18 we stopped the pemetrexed and just continued the pembrolizumab alone for maintenance. We give pembrolizumab (KEYTRUDA) every 3 weeks. ?? PET CT 05/16/18 was excellent, no sign of any active lung cancer in chest, nodes, or bones. Tolerating pembrolizumab(KEYTRUDA) well except for hypothyroidism. R ovarian lesion with sl hypermetabolic activity noted on PET, probably simple and hemorrhagic cyst. US shows 2 cysts, 1 is simple, 1 appears hemorrhagic. CA125 is normal. ?? PET/CT 08/06/18 was good report, no hypermetabolic activity in the lungs, minimal activity in the right hip. Very low level activity in the right ovary. ?? 09/26/18 Keytruda held due to elevated LFTs. CT CAP 09/27/18 showed complete remission; no active cancer and liver normal. Thus elevated LFTs may have been due to autoimmune hepatitis from KEYRUDA. Repeated LFTs again and still elevated but slightly better. Treated briefly with prednisone in 09/2018; had rapid improvement within first week, prednisone tapered over next 4 weeks. LFTs were normal 10/24/18, she was taken off prednisone, and KEYTRUDA was resumed. 12/24/[address] CAP showed no evidence of active metastatic cancer. Low concern that her sinus symptoms and tinnitus are related to the KEYTRUDA or symptoms metastatic disease. To be certain we did get an MRI brain. It came back normal. We can continue her KEYTRUDA(pembrolizumab) checkpoint inhibitor Tx. We are giving this q 3 weeks as maintenance indefinitely since she is in complete remission with original Dx of oligometastatic disease. Will continue to give ZOMETA q 3 months. The KEYTRUDA immune Tx may be partial cause of her severe fatigue, which has left her partially disabled, but we want to continue it since it appears to be the shahid to her complete remission. 01/16/2019 Patient doing well overall. She noted ongoing decreased energy and increased hair loss. Her TSH and Free T4 are within normal limits. Her labs showed a significant jump in her LFT's. This happened once before in 09/2018 with significant improvement after a week. She did receive one week prednisone at that time. We suspect that her intermittent elevated LFT's are secondary to KEYTRUDA. Held KEYTRUDA with plan for a repeat CMP in a week. 01/30/19 Cbc, cmp, TSH, reviewed. Free T4, cortisol pending. Will need poc urine protein today. LFTs have returned to normal limits today. Okay to proceed with Keytruda + zometa today if remaining results within treatment parameters. Bone metastasis 10/29/2017 Overview: February 24 2023 IMO Update Last Assessment & Plan: Has isolated bone met to right hip; had path fracture and hip replacement surgery. Healed well now. No sign of other bone mets on PET CT. Metastasis was essentially resected completely with hip replacement surgery. She completed XRT to right hip 11/27/17-11/28/17.??We started ZOMETA #1 on 12/06/17 and are repeating it every 12 weeks. PET/CT 08/06/18 did not show any concerning bone lesions. Just has intermittent right hip pain, worse after prolonged standing. Received last ZOMETA on 11/12/18. Will continue ZOMETA q 12 weeks to prevent new bone mets. 01/30/19 No new areas of bone pain. Will give Zometa today if labs within treatment parameters. Closed fracture of right hip, subsequent encount er 10/18/2017 Last Assessment & Plan: 49 y.o. female over 2 years s/p R NEETA. Doing very well. - WBAT RLE - Rest, ice, heat, elevate, and OTC pain medication as needed - Follow up in 1 year with Soto Salgado MD or Karin Issa PA-C Chemotherapy-induced nausea Chemotherapy follow-up examination Hair loss Colitis Abnormal LFTs Autoimmune hepatitis treated with steroids ([facility]) Current Oncology Plans No current plan information found. Past Plans ANCILLARY CARE Plan Name Start Date Discontinue Date Treatment Medications Discontinue Reason Plan Provider Cycles OP ZOLEDRONIC ACID 11/12/20 18 09/04/2022 zoledronic acid (ZOMETA) IV Therapy Complete Pradip Sampson MD 7 of 7 cycles started OP ZOLEDRONIC ACID 8 08/16/2018 zoledronic acid (ZOMETA) IV Therapy Complete Pradip Sampson MD 4 of 5 cycles started ONCOLOGY TREATMENT Plan Name Start Date Discontinue Date Treatment Medications Discontinue Reason Plan Provider Cycles OP PEMBROLIZUMAB 07/17/20 19 10/28/2021 pembrolizumab (KEYTRUDA) IVPB Therapy Complete Pradip Sampson MD 31 of 31 cycles started OP IPILIMUMAB AND NIVOLUMAB 07/17/20 19 07/17/2019 ipilimumab (YERVOY)nivolumab (OPDIVO) IVPB Entered in error Pradip Sampson MD Treatment not started OP PEMBROLIZUMAB 03/20/20 18 07/17/2019 pembrolizumab (KEYTRUDA) IVPB Progression Pradip Sampson MD 21 of 22 cycles started OP CARBOPLATIN / PEMETREXED/ PEMBROLIZUMAB 8 03/20/2018 CARBOplatin (PARAPLATIN) IVPBcyanocobalamin (NERVIDOX S)pegfilgrastim (NEULASTA ON-PRO INJECTOR)pembrolizu mab (KEYTRUDA) IVPBpemetrexed (ALIMTA) IVPB Planned Change in Therapy Pradip Sampson MD 5 of 6 cycles started Radiation Treatments * No radiation treatments are documented for this patient in [facility]. Treatments may have been administered in another system. Resolved Problems Problem Noted Date Diagnosed Date Resolved Date Breast cancer metastasized t o adrenal gland, left ([facility]) 06/19/2019 08/05/2019 Mucositis due to chemotherapy 08/05/2019 Constipation, unspecified constipation type 11/05/2019 Thrush, oral 08/05/2019 Examination prior to chemotherapy 11/05/2019 Right shoulder pain, unspecified chronicity 08/05/2019 Adrenal mass, left ([facility]) 08/05/2019
--- OUTSIDE RECORDS SUMMARY | 2024-07-21 20:21 | XMS_ITS | Referral Summary ---
Author Organization [facility] Address [address] [place] [phone] Phone Care Team Providers Care Pneumatic Tester Mechanic Name Role Phone Nereida Pratt APRN, TELEVISION CAMERA OPERATOR Primary Care Provi lowell Source Comments [employer] is fully rolled out on [employer]. Last update 04/30/09.[address] Encounters Date Type Department Care Team Description 06/08/2024 Travel 06/08/2024 7:36 AM CDT - 06/08/2024 11:59 PM CDT Hospital Encounter [facility] MRI [address] [place] [address] Pradip Sampson MD Discharge Disposition: Discharged to home or self care 06/08/2024 7:37 AM CDT - 06/08/2024 11:59 PM CDT Hospital Encounter [facility] MRI [address] [place] [address] Pradip Sampson MD Discharge Disposition: Discharged to home or self care 05/16/2024 Orders Only [facility] [address] [place] [address] Pradip Sampson MD Chronic nonintractable headache, unspecified headache type (Primary Dx); Neck pain; Adenocarcinoma of right lung, stage 4 ([facility]) from Last 3 Months Allergies Active Allergy Reactions Criticality Noted Date Comments Chlorhexidine Rash 12/04/2017 Developed rash after CHG use Codeine Hives 07/01/2007 Other reaction(s): Nausea Only Ketorolac Tromethamine Rash,Swelling High 12/19/2017 Latex Rash Low 05/15/2014 Nitrofurantoin Hives 07/01/2007 Sulfamethoxazole-Trimethopr im Hives 07/01/2007 Sulfasalazine Hives 06/16/2011 Medications * Be aware that medications may not be up to date as of this document. Always verify current medications with patient. Medication Sig Dispensed Refills Start Date End Date Status CHOLEcalciferol (VITAMIN D3) 1000 UNIT oral tablet Take 5 tablets (5,000 UNITS) by mouth daily. Active omeprazole (PRILOSEC) 20 mg oral capsuleIndications :Heartburn Take 1 capsule (20 mg) by mouth daily. Indications: HeartburnDo not crush. Active Cyanocobalamin (VITAMIN B12 ORAL) Take 1 tablet by mouth daily. Active calcium-vitamin d (SHEBA CALCIUM-VITAMIN D) 600-200 MG-UNIT oral tablet Take 1 tablet by mouth daily. Active prochlorperazine (COMPAZINE) 10 mg oral tablet TAKE ONE TABLET BY MOUTH EVERY 6 HOURS NEEDED FOR NAUSEA/VOMITING. MAX DOSE OF 4 TABLETS PER 24 HOURS 30 tablet 12 08/07/2019 Active naratriptan (AMERGE) 2.5 mg oral tablet Take 2.5 mg by mouth twice daily as needed. Active topiramate (TOPAMAX) 100 mg oral tablet Take 1 tablet (100 mg) by mouth twice daily.Takes 75 mg BID Active tab-a-sheri oral tablet Take 1 tablet by mouth daily. Active loratadine (CLARITIN) 10 mg oral tablet Take 1 tablet (10 mg) by mouth daily. Active citalopram (CELEXA) 10 mg oral TABS Take 3 tablets (30 mg) by mouth. 05/09/2021 Active cimetidine (TAGAMET) 800 mg oral TABS Take 1 tablet (800 mg) by mouth. 10/24/2021 Active zolpidem (AMBIEN) 10 mg oral TABS Take 1 tablet (10 mg) by mouth at bedtime. 04/17/2022 Active loperamide (IMODIUM) 2 mg oral capsuleIndications :Adenocarcinoma of right lung, stage 4 (CMS/HHS) Take 2 capsules (4 mg) by mouth at onset of symptoms, then Take 1 capsule (2 mg) by mouth as needed for diarrhea. Do NOT take more than 8 capsules (16 mg) in 24 hours. 50 capsule 12 07/13/2022 Active Biotin 10 MG oral capsule take once by oral route everyday in the a.m. 09/08/2022 Active levothyroxine (SYNTHROID) 125 mcg oral tablet Take 1 tablet (125 mcg) by mouth daily before morning meal. 03/23/2024 Active MAGNESIUM MALATE ORAL Take by mouth. Active Active Problems Problem Noted Date Diagnosed Date [...] neoplasm metastati c to left adrenal gland ([facility]) 06/19/2019 Migraine, chronic, without aura 06/17/2019 Chronic [...] Plan: Hypermetabolic nodules seen on PET CT 6/21/18. Pelvic US 05/28/18 shows simple cyst and hemorrhagic cyst. CA125 is normal 06/11/2018 . She had more RLQ pain on 07/15/18, went to [facility] ED, had CT and US showing complex right ovarian cyst. 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 Will refer to [facility] for further evaluation of recurrent vaginal infections. [...] hip surgery path tissue was sent for [facility] analysis but was too scant to work with. We arranged RUL lung Bx on 11/14/17, and we have sent tissue to [facility] for molecular analysis and PDL1 testing. It [...] Abnormal LFTs Autoimmune hepatitis treated with steroids ([facility]) Resolved Problems Problem Noted Date Diagnosed Date Resolved Date Breast cancer metastasized t o adrenal gland, left ([facility]) 06/19/2019 08/05/2019 Mucositis due to chemotherapy 08/05/2019 Constipation, unspecified constipation type 11/05/2019 Thrush, oral 08/05/2019 Examination prior to chemotherapy 11/05/2019 Right shoulder pain, unspecified chronicity 08/05/2019 Adrenal mass, left ([facility]) 08/05/2019 Immunizations Name Administration Dates Next Due COVID-19 Vaccine Monovalent (MODERNA) 12 Years and Older 02/09/2021,01/11/2021 Influenza Vaccine 6 Months t hrough Adult - Prefilled 08/29/2021,08/16/2020,08/27/2019,2017,09/05/2018(Deferred: Patient Refused) Pneumococcal Conjugate, 13 - Valent Vaccine(Prevnar 13) 08/15/2018,10/29/2017 Tetanus Toxoid, Reduced Diph theroid Toxoid Acellular Pertussis 02/03/2020 Social History Tobacco Use Types Packs/Day Years [...] Orientation Straight 05/09/2021 9: 29 AM CDT Last Filed Vital Signs Vital Sign Reading Time Taken Comments Blood Pressure 108/70 03/24/2024 10:57 AM CDT Pulse 89 03/24/2024 10:57 AM CDT Temperature 35.8 ??C (96.4 ??F) 03/24/2024 10:57 AM C DT Respiratory Rate 16 03/04/2021 10:50 AM CDT Oxygen Saturation 96% 03/04/2021 10:50 AM CDT Inhaled Oxygen Concentration - - Weight 70.8 kg (156 lb) 03/24/2024 10:57 AM CDT Height 154.9 cm (5' 1) 10/26/2020 10:46 AM COP Body Mass Index 29.48 10/26/2020 10:46 AM COP Plan of Treatment Upcoming Encounters Date Type Department Care Team (Latest Contact Info) Description 09/15/2024 9:30 AM CDT Appointment Clinic & Specialty [facility] Cancer [address] [address] Scheduled Discharge Disposition: Discharged to home or self care 09/15/2024 10:30 AM CDT Appointment [facility] CT [address] [place] [address] Pradip Sampson MD [address] [place] [address] Scheduled Discharge Disposition: Discharged to home or self care 09/15/2024 11:30 AM CDT Appointment Clinic & Specialty [address] [address] Pradip Sampson MD [address] [place] [address] Scheduled Discharge Disposition: Discharged to home or self care Medical Devices Implanted Type Area Telescope Repairer Device Identifier Shelf Expiration Date Model / Serial / Lot Spherical Head Screw,[employer] Reflec 6.5x30mm [id number] Implanted:Qty: 1 on 10/19/2017 by Soto Salgado MD at [facility] Screw/Ke t Right: Hip [employer] 05/07/2027 [id number] / / [id number] Endoclip 5mm [id number] Implanted:Qty: 1 on 06/19/2019 by Juan Alberto Felton MD at [facility] Staple Left: Abdomen [employer] LP 11/25/2021 [id number] / / [id number] Size 11 ([id number]) Implanted:Qty: 1 on 10/19/2017 by Soto Salgado MD at [facility] Total Joint Stem Right: Hip [employer] 07/18/2027 [id number] / / [id number] Shell Acetabular Hemispherical Coated R3 3hole 48mm Od Implanted:Qty: 1 on 10/19/2017 by Soto Salgado MD at [facility] Right: Hip [employer] 04/02/2027 [id number] / / [id number] Cover Scr H F/Acet Cup Thrd Reflct [id number] Implanted:Qty: 1 on 10/19/2017 by Soto Salgado MD at [facility] Right: Hip [employer] 09/17/2027 [id number] / / [id number] Liner Acetabular R3 Xlpe 0 Deg X 32mm X 48mm Implanted:Qty: 1 on 10/19/2017 by Soto Salgado MD at [facility] Right: Hip [employer] 03/22/2026 [id number] / / [id number] Head Bilolox Ceramic 32mm X 0mm Implanted:Qty: 1 on 10/19/2017 by Soto Salgado MD at [facility] Right: Hip [employer] 12/18/2026 [id number] / / [id number] Port-A-Cath Ii-11/12/2020 Implanted:Qty: 1 on 11/12/2020 by Dwayne Valdez MD Left: Chest [employer] 06/29/2024 / / [id number] Description:Ref 21-4055-24 Explanted Type Area Telescope Repairer Device Identifier Shelf Expiration Date Model / Serial / Lot Port-A-Cath Single Lumen KitLata (21-4055-24) Implanted:Qty : 1 on 12/04/2017 by Melody Rodriguez MD at [facility] Explanted:Qty : 1 on 11/12/2020 by Dwayne Valdez MD [facility] Left: Internal Jugular [employer] 04/12/2022 [id number] Procedures Procedure Name Priority Date/Time Associated Diagnosis Comments MR BRAIN W/O + WITH CONTRAST Routine 06/08/2024 9:17 AM CDT Chronic nonintractable headache, unspecified headache type Neck pain Adenocarcinoma of right lung, stage 4 (CMS/HHS) MR SPINE CERVICAL W/O + W/CON Routine 06/08/2024 9:17 AM CDT Chronic nonintractable headache, unspecified headache type Neck pain Adenocarcinoma of right lung, stage 4 (CMS/HHS) FLEXIBLE SIGMOIDOSCOPY Routine 03/04/2021 10:03 AM CDT Abnormal finding on imaging KATIA MAMMOGRAM DIAG SANDOR DIGITAL Routine 05/02/2019 11:45 AM CDT Adenocarcinoma of right lung, stage 4 ([facility]) HIV COMBO Routine 10/18/2017 12:45 PM COP from Last 3 Months or Most Recently Relevant to Health Maintenance Results * MR BRAIN W/O + WITH CONTRAST (06/08/2024 9:17 AM CDT) Anatomical Region Laterality Modality Skull Magnetic Resonan ce 06/08/2024 9:13 AM CDT Impressions 06/08/2024 9:59 AM CDT Impression: ??Normal brain MRI without and with intravenous contrast. No evidence of metastatic tumor. Reading Radiologist: Rik Cornejo Narrative 06/08/2024 9:59 AM CDT Brain MRI without and with contrast Indication: Brain metastases suspected ??headaches, HX NSCLC ??. Comparison: ??02/01/2021 Technique: Sagittal T1-weighted, axial T2-weighted, TurboFLAIR, T1-weighted, and diffusion and susceptibility-weighted images were obtained without intravenous contrast. ??Post intravenous contrast (using gadolinium) axial and coronal T1-weighted images were obtained. Findings: The images reveal no mass lesions, midline shift, nor abnormal extraaxial fluid collections. The cerebral ventricles and sulci appear normal for age. The cerebral white matter and salmon matter appear normal for age. Axial diffusion weighted images are unremarkable. Following the administration of MR contrast, no abnormal contrast enhancement is noted. Normal vascular flow voids are seen. The visualized portions of the orbits and paranasal sinuses appear normal. Procedure Note Rik Cornejo MD - 06/08/2024 Brain MRI without and with contrast Indication: Brain metastases suspected headaches, HX NSCLC . Comparison: 02/01/2021 Technique: Sagittal T1-weighted, axial T2-weighted, TurboFLAIR,T1-weighted, and diffusion and susceptibility-weighted images wereobtained without intravenous contrast. Post intravenous contrast (usinggadolinium) axial and coronal T1- weighted images were obtained. Findings: The images reveal no mass lesions, midline shift, nor abnormalextraaxial fluid collections. The cerebral ventricles and sulci appearnormal for age. The cerebral white matter and salmon matter appear normalfor age. Axial diffusion weighted images are unremarkable. Following the administration of MR contrast, no abnormal contrastenhancement is noted. Normal vascular flow voids are seen. The visualized portions of the orbitsand paranasal sinuses appear normal. IMPRESSION Impression: Normal brain MRI without and with intravenous contrast. Noevidence of metastatic tumor. Reading Radiologist: Rik Cornejo Pradip Sampson MD RAD MR NEURO * MR SPINE CERVICAL W/O + W/CON [...] C2-3 and C3-4. Reading Radiologist: Rik Cornejo Narrative 06/09/2024 12:08 PM CDT MRI of the [...] narrowing greater on the left. Possible left [id number] root impingement. C7-T1: Mild facet arthropathy. Mild [...] Cornejo Pradip Sampson MD RAD MR NEURO * FLEXIBLE SIGMOIDOSCOPY (03/04/2021 10:03 AM CDT) 03/04/2021 10:0 3 AM CDT [facility]ative [facility] - 04/11/2021 3:53 PM CDT Gastroenterology Lab Patient Name: Karin Edwards ?Procedure Date: 03/04/2021 10:03 AM ?Date of : 1970 Admit Type: Outpatient ?Age: 50 Gender: Female Procedure: ? Flexible Sigmoidoscopy Indications: ? Diarrhea (secondary to noninfectious colitis) Providers: ? Bren Aviles, Deo Farley (Fellow), Batsheva Meek, DIO, Natalia Goodman (Junior Net Developer) Referring MD: ?Pradip Sampson MD (Referring MD) Medicines: ? Fentanyl 50 micrograms IV, Midazolam 2 mg IV Complications: ? No immediate complications. Procedure: ? After obtaining informed consent, the scope was passed under direct vision. Throughout the procedure, the patient's blood pressure, pulse, and oxygen saturations were monitored continuously. The procedure was aborted in the sigmoid colon, the initial intention was to reach the splenic flexure. The flexible sigmoidoscopy was accomplished without difficulty. The patient tolerated the procedure well. Moderate Sedation: Moderate (conscious) sedation was administered by the endoscopy nurse and supervised by the endoscopist. The following parameters were monitored: oxygen saturation, heart rate, blood pressure, and response to care. Total physician intraservice time was 10 minutes. Findings: The perianal and digital rectal examinations were normal. A patchy area of very mildly erythematous mucosa was found in the recto-sigmoid colon and in the sigmoid colon. Biopsies were taken with a cold forceps for histology. Solid stool was found in the sigmoid colon which prevented further advancement of the scope, precluding visualization. The exam was otherwise without abnormality. Patient Profile: ?? This is a 50 year old female with RUL adenoCA on treatment with Keytruda. Flex sig for work up of diarrhea.. Impression: ?- Erythematous mucosa in the recto-sigmoid colon and in the sigmoid colon. Biopsied to rule out immune therapy-related colitis. - Stool in the sigmoid colon. - The examination was otherwise normal. Recommendation: ?- Discharge patient to home (with escort). - Await path results. I was present for the entire procedure . Bren Aviles MD Bren Aviles, , [id number] 03/04/2021 10:38:56 AM This report has been signed electronically. Deo Farley, , [id number] Number of Addenda: 0 Note Initiated On: 03/04/2021 10:03 AM Pradip Sampson MD GI LAB [facility] GI * KATIA MAMMOGRAM DIAGNOSTIC BILAT DIGITAL (05/02/2019 11:45 AM CDT) Anatomical Region Laterality Modality Breast Bilateral Mammography 05/02/2019 11:3 6 AM CDT Impressions 05/02/2019 1:20 PM CDT Impression: Bi-Rads Category 1: ??Negative. Recommend annual screening mammography. The patient received these results and recommendations before leaving the radiology department on the day of her diagnostic mammogram. In addition, the patient will be notified of the results by mail. This mammogram was performed and interpreted with tomosynthesis. R2 Computer Aided Detection (CAD) with radiologist review and interpretation was performed on this mammogram. I have personally reviewed the image(s) and initial interpretation, and I agree with the findings as documented by the resident/fellow. Reading Radiologist: Oscar Maldonado Reading Resident: Frankie Lees Narrative 05/02/2019 1:20 PM CDT Indication: assymetry on CT, Hx metastatic lung cancer ?? Comparison: None, comparison made to recent CT 04/14/2019 based on the recommendations of which diagnostic mammogram was performed Findings: Diagnostic mammogram bilateral breasts. No suspicious finding. Previous noted CT findings, is secondary to normal axillary breast tissue. Breast density is ACR Grade c, heterogeneously dense. Pradip Sampson MD RAD MAMMO * HIV COMBO (10/18/2017 12:45 PM COP) HIV Antigen-Antibody Nonreactive Nonreactive [facility] Comment:Performance characte ristics have not been established with this test on patients less than 2 years of age. Blood specimen (specimen) 10/18/2017 12:45 PM COP 10/18/2017 7:35 PM COP Shira Lerma MD LABORATORY [facility] [address] [address] from Last 3 Months or Most Recently Relevant to Health Maintenance Advance Directives For more information, please contact: [phone] * Full Code (Latest Code Status on File) Date Activated Date Inactivated Comments 09/11/2019 5:30 PM 09/12/2019 7:36 PM Question Answer Comments Does the Patient have prefer ences regarding life sustaining measures (these options only apply when the patient has a pulse): No Discussed Code Status With Whom? Not discussed * Full Code Date Activated Date Inactivated Comments 06/19/2019 11:43 AM 06/21/2019 4:00 PM Question Answer Comments Does the Patient have prefer ences regarding life sustaining measures (these options only apply when the patient has a pulse): No Discussed Code Status With Whom? Not discussed * Full Code Date Activated Date Inactivated Comments 10/18/2017 11:29 AM 10/23/2017 8:10 PM Question Answer Comments Does the Patient have prefer ences regarding life sustaining measures (these options only apply when the patient has a pulse): No Discussed Code Status With Whom? Patient Care Teams Pneumatic Tester Mechanic Relationship Specialty Start Date End Date Nereida Pratt, CHIEF CLIENT OFFICER, TELEVISION CAMERA OPERATOR [address] [place] [id number] PCP - General Outside Provider 10/10/18
--- OUTSIDE RECORDS SUMMARY | 2024-07-21 20:21 | XMS_ITS | Clinical Summary ---
Author Organization [facility] Address [address] [place], [place] [address] [place] [address] Phone Care Team Providers Care Senior Biostatistician Name Role Phone Nereida Pratt APRN, PROGRESSIVE DIE MAKER Primary Care Provi lowell Source Comments [employer] is fully rolled out on [employer]. Last update 04/30/09.[facility] Allergies Active Allergy Reactions Criticality Noted Date [...] RLQ pain on 07/15/18, went to [facility] ED, had CT and US showing complex right ovarian cyst. 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 Will refer to ARMORED TRUCK DRIVER for further evaluation of recurrent vaginal infections. [...] hip surgery path tissue was sent for [employer] analysis but was too scant to work with. We arranged RUL lung Bx on 11/14/17, and we have sent tissue to [employer] for molecular analysis and PDL1 testing. It [...] appears hemorrhagic. CA125 is normal. ?? PET/CT 9/11/18 was good report, no hypermetabolic activity in [...] Abnormal LFTs Autoimmune hepatitis treated with steroids ([facility]) Resolved Problems Problem Noted Date Diagnosed Date Resolved Date Breast cancer metastasized t o adrenal gland, left ([facility]) 06/19/2019 08/05/2019 Mucositis due to chemotherapy 08/05/2019 Constipation, unspecified constipation type 11/05/2019 Thrush, oral 08/05/2019 Examination prior to chemotherapy 11/05/2019 Right shoulder pain, unspecified chronicity 08/05/2019 Adrenal mass, left ([facility]) 08/05/2019 Encounters Date Type Department Care Team Description 06/08/2024 7:37 AM CDT - 06/08/2024 11:59 PM CDT Hospital Encounter [facility] MRI [address] [place] [address] Pradip Sampson MD Discharge Disposition: Discharged to home or self care 06/08/2024 7:36 AM CDT - 06/08/2024 11:59 PM CDT Hospital Encounter [facility] MRI [address] [place] [address] Pradip Sampson MD Discharge Disposition: Discharged to home or self care 06/08/2024 Travel 05/16/2024 Orders Only [facility] [address] [place] [address] Pradip Sampson MD Chronic nonintractable headache, unspecified headache type (Primary Dx); Neck pain; Adenocarcinoma of right lung, stage 4 (CMS/HHS) from Last 3 Months Immunizations Name Administration Dates Next Due COVID-19 Vaccine Monovalent (MODERNA) 12 Years and Older 02/09/2021,01/11/2021 Influenza Vaccine 6 Months t hrough Adult - Prefilled 08/29/2021,08/16/2020,08/27/2019,2017,09/05/2018(Deferred: Patient Refused) Pneumococcal Conjugate, 13 - Valent Vaccine(Prevnar 13) 08/15/2018,10/29/2017 Tetanus Toxoid, Reduced Diph theroid Toxoid Acellular Pertussis 02/03/2020 Family History Medical History Relation Name Comments Asthma Brother 1 Arthritis Father Diabetes Father Hypertension Father Kidney Disease Father Arthritis Mother Cancer Breast Mother Mental illness Mother Thyroid Mother Asthma Sister Thyroid Sister GI Neg Hx No FH of GI dis orders or malignancies Relation Name Status Comments Brother 1 Alive Brother 2 Alive Brother 3 Alive Daughter 1 Alive Daughter 2 Alive Daughter 3 Alive Daughter 4 Alive Father Alive Mother Alive Sister Alive Social History Tobacco Use Types Packs/Day Years [...] 154.9 cm (5' 1) 10/26/2020 10:46 AM DOCTOR OF PHARMACY Body Mass Index 29.48 10/26/2020 10:46 AM DOCTOR OF PHARMACY Plan of Treatment Upcoming Encounters Date Type Department Care Team (Latest Contact Info) Description 09/15/2024 9:30 AM CDT Appointment [facility] [address] [place] [address] Scheduled Discharge Disposition: Discharged to home or self care 09/15/2024 10:[address] [facility] [place] [address] [place] [address] Pradip Sampson MD [address] [place] [address] Scheduled Discharge Disposition: Discharged to home or self care 09/15/2024 11:30 AM CDT Appointment Clinic & Specialty [facility] [address] [place] [address] Pradip Sampson MD [address] [place] [address] Scheduled Discharge Disposition: Discharged to home or self care Health Maintenance Due Date Last Done Comments CT Colonography 1971 Colonoscopy 1971 Dental Oral Exam 1971 Dental Prophylaxis 1971 Dental X-Ray: Bitewings 1971 Depression Management 1971 FIT/Cologuard 1971 iFOB/FIT 1971 Periodontal Maintenance 1985 Medicare Annual Wellness 1989 HEALTH MAINTENANCE PROTOCOL 1990 Cervical Cancer Screening Age 30-65 2001 MEDICATION REFILL PROTOCOL 05/18/2022 05/18/2021 Imm: COVID-19 (4 2022-24 season) 2023 11/23/2021, 02/09/2021, 01/11/2021 PREVENTATIVE VISIT 02/28/2024 02/27/2023 Imm: Flu (#1) 07/27/2024 12/18/2023, 08/27, 08/29/2021, Additional history exists Breast Cancer Screening 09/10/2025 09/10/20, 08/29/2022, 06/01/2021, Additional history exists Colorectal Cancer Screening 03/04/2026 Sigmoidoscopy 03/04/2026 03/04/2021 Lipid Screening 08/01/2027 08/01/2022 Imm: DTaP/Tdap (4 - Td or Tdap) 02/02/2030 02/03/2020, 02/18/2010, 08/08/2000 HIV Screening Completed 10/18/2017 Imm: Pneumonia Peds or At-Risk less than 65 years Aged Out 08/15/2018, 10/29/2017, 03/12/2015 No longer eligible based on patient's age to complete this topic Imm: Zoster Completed 08/01/2022, 05/25/2022 Imm: HPV Aged Out No longer eligi ble based on patient's age to complete this topic Imm: HepA Aged Out No longer eligi ble based on patient's age to complete this topic Imm: Hib Aged Out No longer eligi ble based on patient's age to complete this topic Imm: Meningitis Aged Out No longer el igible based on patient's age to complete this topic Medical Devices Implanted Type Area Instructional Support Assistant Device Identifier Shelf Expiration Date Model / Serial / Lot Spherical Head Screw,[employer] Reflec 6.5x30mm [id number] Implanted:Qty: 1 on 10/19/2017 by Soto Salgado MD at [facility] Screw/Ke t Right: Hip [employer] 05/07/2027 [id number] / / [id number] Endoclip 5mm [id number] Implanted:Qty: 1 on 06/19/2019 by Juan Alberto Felton MD at [facility] Staple Left: Abdomen [employer]EN LP 11/25/2021 [id number] / / [id number] Size 11 ([id number]) Implanted:Qty: 1 on 10/19/2017 by Soto Salgado MD at [facility] Total Joint Stem Right: Hip [employer] 07/18/2027 [id number] / / [id number] Shell Acetabular Hemispherical Coated R3 3hole 48mm Od Implanted:Qty: 1 on 10/19/2017 by Soto Salgado MD at [facility] Right: Hip [employer] 04/02/2027 [id number] / / [id number] Cover Scr H F/Acet Cup Thrd Reflct [id number] Implanted:Qty: 1 on 10/19/2017 by Soto Salgado MD at [facility] Right: Hip [employer] 09/17/2027 [id number] / / [id number] Liner Acetabular R3 Xlpe 0 Deg X 32mm X 48mm Implanted:Qty: 1 on 10/19/2017 by Soto Salgado MD at [facility] Right: Hip [employer] 03/22/2026 [id number] / / [id number] Head [employer] 32mm X 0mm Implanted:Qty: 1 on 10/19/2017 by Soto Salgado MD at [facility] Right: Hip [employer] 12/18/2026 [id number] / / [id number] Port-A-Cath Ii-11/12/2020 Implanted:Qty: 1 on 11/12/2020 by Dwayne Valdez MD Left: Chest LATA HERRON 06/29/2024 / / [id number] Description:Ref 21-4055-24 Explanted Type Area Instructional Support Assistant Device Identifier Shelf Expiration Date Model / Serial / Lot Port-A-Cath Single Lumen Lata Simmons (21-4055-24) Implanted:Qty : 1 on 12/04/2017 by Melody Rodriguez MD at [facility] Explanted:Qty : 1 on 11/12/2020 by Dwayne Valdez MD [facility] Left: Internal Jugular [employer] 04/12/2022 [id number] Procedures Procedure Name Priority Date/Time Associated Diagnosis [...] CDT Adenocarcinoma of right lung, stage 4 (CMS/HHS) HIV COMBO Routine 10/18/2017 12:45 PM DOCTOR OF PHARMACY from Last 3 Months or Most Recently Relevant to Health Maintenance Results * MR BRAIN W/O + WITH CONTRAST (06/08/2024 9:17 AM CDT) Anatomical Region Laterality Modality Skull Magnetic Resonan ce 06/08/2024 9:13 AM CDT Impressions 06/08/2024 9:59 AM CDT Impression: ??Normal brain MRI without and with intravenous contrast. No evidence of metastatic tumor. Reading Radiologist: Rik Cornejo 06/08/2024 9:59 AM CDT Brain MRI without [...] narrowing greater on the left. Possible left [id number] root impingement. C7-T1: Mild facet arthropathy. Mild [...] and C3-4. Reading Radiologist: Rik Cornejo Pradip Sapmson MD RAD MR NEURO * FLEXIBLE SIGMOIDOSCOPY (03/04/2021 10:03 AM CDT) 03/04/2021 10:[address] [facility] GI - 04/11/2021 3:53 PM CDT Gastroenterology Lab Patient Name: Karin Edwards ?Procedure Date: 03/04/2021 10:03 AM ?Date of : 1970 Admit Type: Outpatient ?Age: 50 Gender: Female Procedure: ? Flexible Sigmoidoscopy Indications: ? Diarrhea (secondary to noninfectious colitis) Providers: ? Deo Barrow (Fellow), Batsheva Meek RN, Natalia Goodman (Package Center Supervisor) Referring MD: ?Pradip Sampson MD (Referring MD) [...] . Bren Aviles MD Bren Aviles, , [id number] 03/04/2021 10:38:56 AM This report has been signed electronically. Deo Farley, , [id number] Number of Addenda: 0 Note Initiated On: 03/04/2021 10:03 AM Pradip Sampson MD GI LAB [facility] GI * KATIA MAMMOGRAM DIAGNOSTIC BILAT DIGITAL [...] MAMMO * HIV COMBO (10/18/2017 12:45 PM DOCTOR OF PHARMACY) HIV Antigen-Antibody Nonreactive Nonreactive [facility] Comment:Performance characte ristics have not been established with this test on patients less than 2 years of age. Blood specimen (specimen) 10/18/2017 12:45 PM DOCTOR OF PHARMACY 10/18/2017 7:35 PM DOCTOR OF PHARMACY Shira Lerma MD LABORATORY [facility] [address] [place] [address] from Last 3 Months or Most Recently Relevant to Health Maintenance Advance Directives For more information, please contact: [phone] * Full Code (Latest Code Status on [...] Code Status With Whom? Patient Care Teams Senior Biostatistician Relationship Specialty Start Date End Date Nereida Pratt, SAP PORTAL DEVELOPER, PROGRESSIVE DIE MAKER [address] [place] [address] PCP - General Outside Provider 10/10/18
--- OUTSIDE RECORDS SUMMARY | 2024-07-21 20:21 | XMS_ITS | Encounter Summary ---
Author Organization [facility] Address [address] [place] [address] Phone Care Team Providers Care Furniture Mechanic Name Role Phone Nereida Pratt APRN, PUPPET ENGINEER Primary Care Provi lowell Reason for Visit [...] W/CONTRAST MATRL MR NECK W/O + W/CONTRAST [[id number] (CPT??)] Mri [facility] [address] [place] [address] [address] [place] [address] Referral ID Status Reason Start Date Expiration Date Visits Re quested Visits Authorized [id number] Closed 2 2 Encounter Details Date Type Department Care Team (Latest Contact Info) Description 06/08/2024 7:37 AM CDT - 06/08/2024 11:59 PM CDT Hospital Encounter [facility] MRI [address] [place], [place] [id number] Pradip Sampson MD [address] [place] [address] Discharge Disposition: Discharged to home or self [...] AM CDT Appointment [facility] [address] [place] [address] Scheduled Discharge Disposition: Discharged to home or self care 09/15/2024 10:30 AM CDT Appointment [facility] CT [address] [place] [address] Pradip Sampson MD [address] [place] [address] Scheduled Discharge Disposition: Discharged to home or self care 09/15/2024 11:30 AM CDT Appointment [facility] [address] [address] Pradip Sampson MD [address] [place] [address] Scheduled Discharge Disposition: Discharged to home or self care documented as of this encounter Procedures Procedure Name Priority Date/Time Associated Diagnosis Comments MR BRAIN W/O + WITH CONTRAST Routine 06/08/2024 9:17 AM CDT Chronic nonintractable headache, unspecified headache type Neck pain Adenocarcinoma of right lung, stage 4 ([facility]/HHS) documented in this encounter Results * MR BRAIN W/O + WITH [...] Cervicalgia Adenocarcinoma of right lung, stage 4 ([facility]) documented in this encounter Additional Health Concerns Assessment Noted Time PHQ-2 Depression Total Score: 0 10/26/20 20 10:46 AM MERCURY CELL CLEANER documented as of this encounter Care Teams Furniture Mechanic Relationship Specialty Start Date End Date Nereida Pratt, OPERATIONS MANAGER STATION, PUPPET ENGINEER [address] [place] [phone] PCP - General Outside Provider 10/10/18 documented as of this encounter
--- OUTSIDE RECORDS SUMMARY | 2024-07-21 20:21 | XMS_ITS | Encounter Summary ---
Author Organization [facility] Address [address] [facility] [place] [address] Phone Care Team Providers Care Supervisor Dried Yeast Name Role Phone Nereida Pratt APRN, ADULT PAROLE OFFICER Primary Care Provi lowell Encounter Details Date Type Department Care Team (Latest Contact Info) Description 06/08/2024 Travel Social History Tobacco Use Types Packs/Day Years [...] AM CDT documented as of this encounter Plan of Treatment Upcoming Encounters Date Type Department Care Team (Latest Contact Info) Description 09/15/2024 9:30 AM CDT Appointment [facility] [address] [phone] Scheduled Discharge Disposition: Discharged to home or self care 09/15/2024 10:30 AM CDT Appointment [facility] [address] [facility] [address] [place] [address] Pradip Sampson MD [address] [place] [phone] Scheduled Discharge Disposition: Discharged to home or self care 09/15/2024 11:30 AM CDT Appointment [facility] [address] [place] [address] Pradip Sampson MD [address] [address] Scheduled Discharge Disposition: Discharged to home or self care documented as of this encounter Visit Diagnoses Not on filedocumented in this encounter Additional Health Concerns Assessment Noted Time PHQ-2 Depression Total Score: 0 10/26/20 10:46 AM JEWEL BEARING POLISHER documented as of this encounter Care Teams Supervisor Dried Yeast Relationship Specialty Start Date End Date Nereida Pratt APRN, ADULT PAROLE OFFICER [address] [place] [phone] PCP - General Outside Provider 10/10/18 documented as of this encounter
--- OUTSIDE RECORDS SUMMARY | 2024-07-21 20:21 | XMS_ITS | Encounter Summary ---
Author Organization [facility] Address [address] [place] [address] Phone Care Team Providers Care Director Packaging Name Role Phone Nereida Pratt APRN, ASSOCIATE PROFESSOR OF VIOLIN Primary Care Provi lowell Encounter Details Date Type Department Care Team (Latest Contact Info) Description 05/16/2024 Orders Only [facility] [address] [place] [address] Pradip Sampson MD [address] [place] [address] Chronic nonintractable headache, unspecified headache type (Primary Dx); Neck pain; Adenocarcinoma of right lung, stage 4 (CMS/HHS) Social History Tobacco Use Types Packs/Day Years [...] AM CDT Appointment [facility] [address] [place] [phone] Scheduled Discharge Disposition: Discharged to home or self care 09/15/2024 10:30 AM CDT Appointment [facility] CT [address] [place] [address] Pradip Sampson MD [address] [place] [address] Scheduled Discharge Disposition: Discharged to home or self care 09/15/2024 11:30 AM CDT Appointment [facility] [address] [address] Pradip Sampson MD [address] [place] [address] Scheduled Discharge Disposition: Discharged to home or self care documented as of this encounter Results * MR BRAIN W/O [...] Diagnoses Diagnosis Chronic nonintractable headache, unspecified headache type- Primary Neck pain Cervicalgia Adenocarcinoma of right lung, stage 4 (CMS/HHS) Chronic nonintractable headache, unspecified headache type Neck pain Cervicalgia Adenocarcinoma of right lung, stage 4 (CMS/HHS) documented in this encounter Additional Health Concerns Assessment Noted Time PHQ-2 Depression Total Score: 0 10/26/20 20 10:46 AM ADMINISTRATION MANAGER documented as of this encounter Care Teams Director Packaging Relationship Specialty Start Date End Date Nereida Pratt, AREA SUPERVISOR, ASSOCIATE PROFESSOR OF VIOLIN [address] [place] [phone] PCP - General Outside Provider 10/10/18 documented as of this encounter
--- OUTSIDE RECORDS SUMMARY | 2024-07-21 20:21 | XMS_ITS | Continuity of Care Document ---
Author Organization [facility] Address 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 Name Role Phone She Nelly LARIOS Unavailable Unavailable Allergies, Adverse Reactions, Alerts Substance Reaction Status Criticality Sulfa (Sulfonamide Antibiotics) Active No Information Medications Medication Instructions Dosage Effective Dates (start - stop) Status Comments cimetidine 800 mg tablet take 1 tablet by oral route every day at bedtime 800 MG - Active Advil Migraine 200 mg capsule take 4 capsule by oral route every 6 hours as needed 800 MG - Active Procedures Procedure Date RF Cervical/Thoracic Single Level RF Cervical/Thoracic Addt'l Level RF Cervical/Thoracic Addt'l Level RF Cervical/Thoracic Single Level CC Control For Rem/Void Of Mutually Excl usive Proc RF Cervical/Thoracic Addt'l Level RF Cervical/Thoracic Single Level CC Control For Rem/Void Of Mutually Excl usive Proc RF Cervical/Thoracic Single Level RF Cervical/Thoracic Addt'l Level Inj Anes Facet Jt; Cerv/thor-2nd Level J Inj Anes Facet Jt; Cerv/thor-1st Level J Inj Anes Facet Jt; Cerv/thor-3rd Level J Inj Anes Facet Jt; Cerv/thor-1st Level J Inj Anes Facet Jt; Cerv/thor-2nd Level J Inj Anes Facet Jt; Cerv/thor-3rd Level J Lidocaine 50 Cc Change Control for Modifier(s) Change Control for Pharmaceuticals Inj Anes Facet Jt; Cerv/thor-1st Level J Inj Anes Facet Jt; Cerv/thor-2nd Level J Inj Anes Facet Jt; Cerv/thor-3rd Level J Est Pt Eval 15 Min Telehealth Inj Anes Facet Jt; Cerv/thor-1st Level D Inj Anes Facet Jt; Cerv/thor-3rd Level D Inj Anes Facet Jt; Cerv/thor-2nd Level D Inj Anes Facet Jt; Cerv/thor-1st Level D Inj Anes Facet Jt; Cerv/thor-2nd Level D Inj Anes Facet Jt; Cerv/thor-3rd Level D Bupivicaine 30ml Change Control for Modifier(s) Change Control for Pharmaceuticals Inj Anes Facet Jt; Cerv/thor-1st Level D Inj Anes Facet Jt; Cerv/thor-2nd Level D Inj Anes Facet Jt; Cerv/thor-3rd Level D Inject, Spine, Cerv/Thor, Epi/subarc w/i mg Guid Inject, Spine, Cerv/Thor, Epi/subarc w/i mg Guid Methylprednisolone Acetate-40 1 Change Control for Pharmaceuticals Change Control for Diagnosis(s) 021 Est Pt Eval 25 Min Telehealth 1 New Pt Eval 45 Min Advance Directives Directive Yes / No Effective Date File Name No Information Encounters Encounter Description Practice Location Reason(s) For Visit Diagnoses Date Provider Providers Copied on Encounter [facility], [address], [place], [place], [address], [place] tel:[phone] [facility] No Information 2 Denisse Villegas. [address], [place], [address], [place]. tel:[phone] Referring Provider: Moses Mojica, [address], [place], [address]. tel:[phone] Kalia [facility], [address], [place], [place], [address], [place] tel:[phone] [facility] CervicalgiaRadiculo leela, cervical regionSpinal stenosis, cervical regionSpondylosis w/o myelopathy or radiculopathy, cervical region 2 Jason Lopes. [address], [place], [address], [place]. tel:[phone] Referring Provider: Moses Mojica, [address], [place], [address]. tel:[phone] Kalia [facility], [address], [place], [place], [address], [place] tel:[phone] [facility] No Information 2 Jason Lopes. [address], [place], [address], [place]. tel:[phone] Referring Provider: Moses Mojica, [address], [place], [address]. tel:[phone] [facility] [place], [address], [place], [address], [place] tel:[phone] [facility] left neck pain (chief complaint) Spondylosis w/o myelopathy or radiculopathy, cervical regionSpondylosis w/o myelopathy or radiculopathy, cervical region 2 [facility]. [address], [place], [place], [address], [place]. tel:[phone] Referring Provider: Brad Armenta, [address], [place], [address] . tel:[phone] [facility], [address], [place], [address], [place] tel:[phone] [facility] bilateral neck pain (chief complaint) Spondylosis w/o myelopathy or radiculopathy, cervical regionSpondylosis w/o myelopathy or radiculopathy, cervical region 2 [facility]. [address], [place], [place], [address], [place]. tel:[phone] Referring Provider: Brad Armenta, [address], [place], [address] . tel:[phone] [facility], [address], [place], [place], [address], [place] tel:[phone] [facility] No Information 2 Yue Salinas. [address], [place], [place], [address], [place]. tel:[phone] Referring Provider: Brad Armenta, [address], [place], [address] . tel:[phone] [facility], [address], [place], [address], [place] tel:[phone] [facility] bilateral neck pain (chief complaint) Spondylosis w/o myelopathy or radiculopathy, cervical regionSpondylosis w/o myelopathy or radiculopathy, cervical region 2 [facility]. [address], [place], [place], [address], [place]. tel:[phone] Referring Provider: Bard Armenta, [address], [place], [address] . tel:[phone] [facility], [facility], [address], [place], [place], [address], [place] tel:[phone] [facility] No Information 2 Yue Slainas. [address], [place], [place], [address], [place]. tel:[phone] Referring Provider: Brad Armenta, [address], [place], [address] . tel:[phone] Est Pt Eval 15 Min Telehealth [facility], [facility], [address], [place], [place], [address], [place] tel:[phone] [facility] right neck pain (chief complaint) Spondylosis w/o myelopathy or radiculopathy, cervical region 1 Nori Kulkarni. [address], [place], [place], [address], [place]. tel:[phone] Referring Provider: Cayla Armenta, [address], [place], [address] . tel:[phone] [facility], [address], [place], [address], [place] tel:[phone] [facility] bilateral neck pain (chief complaint) Spondylosis w/o myelopathy of cervical regionSpondylosis w/o myelopathy or radiculopathy, cervical region 1 [facility]. [address], [place], [place], [address], [place]. tel:[phone] Referring Provider: Elgin Boateng, [address], [place], [address] . tel:[phone] Kal[facility], [facility], [address], [place], [place], [address], [place] tel:[phone] [facility] No Information 1 Kilo Eisenberg. [address], [place], [place], [address], [place]. tel:[phone] Referring Provider: Elgin Boateng, [address], [place], [address] . tel:[phone] Kalia, [facility], [address], [place], [place], [address], [place] tel:[phone] [facility] No Information 1 Kilo Eisenberg. [address], [place], [place], [address], [place]. tel:[phone] Referring Provider: Elgin Boateng, [address], [place], [address] . tel:[phone] [facility], [address], [place], [address], [place] tel:[phone] [facility] bilateral neck pain (chief complaint) Radiculopathy, cervical regionCervicalgiaRa diculopathy, cervical regionCervicalgia 1 [facility]. [address], [place], [place], [address], [place]. tel:[phone] Referring Provider: Elgin Boateng, [address], [place], [address] . tel:[phone] Est Pt Eval 25 Min Telehealth [facility], [address], [place], [place], [address], [place] tel:[phone] [facility] Migraine (chief complaint) Other cervical disc degeneration of cervical regionSpinal stenosis, cervical regionRadiculopathy , cervical regionHeadacheCervi calgia 1 Denisse Villegas. [address], [place], [address], [place]. tel:[phone] Referring Provider: Marcelo Turner, [address], [place], [address] . tel:[phone] New Pt Eval 45 Min [facility], [address], [place], [place], [address], [place] tel:[phone] [facility] headache (chief complaint) CervicalgiaHeadache Lung cancer NOSBody mass index (BMI) 30.0-30.9, adult 1 Yue Robertson. [address], [facility] [place], [address], [place]. tel:[phone] Referring Provider: Marcelo Turner, [address], [place], [address] . tel:[phone] Family History Family Member Type Diagnosis Age At Onset No Information Payers Payer name Insurance type Covered democrat ID Arvin corrales(s) Medicare Part B [id number] U Care-Medicaid [id number] Social History Type Description Quantity Date Captured Comments Sex Female Smoking Status No Information Chief Complaint And Reason For Visit No Information Reason For Referral Reason For Referral No Information Plan Of Treatment Date Type Action Status Referral Ordered: Physical Therapy (related to Spondylosis w/o myelopathy or radiculopathy, cervical region) ordered Referral Referred To: Physical Therapy Ordered: Referrals: Physical Therapy. Evaluate and treat ordered Referral Referred To: Physical Therapy Ordered: Physical Therapy. Evaluate and treat ordered Referral Referred To: cervical epidural steroid injection Ordered: cervical epidural steroid injection on both sides C6-7 ordered Referral Referred To: Physical Therapy Ordered: Physical Therapy ordered History Of Present Illness Encounter Date Complaint History Of Prese nt Illness left neck pain bilateral neck pain bilateral neck pain right neck pain The symptoms occ ur Occasional. The symptoms are described as ache, burning. Aggravating factors include looking down. Relieving factors include Pain meds/drugs, relaxing. bilateral neck pain bilateral neck pain Migraine Severity: 5. Loc ation is temporal left, temporal right, occipital and Nasal Sinuses. There is radiation to neck and shoulders. The patient describes it as pressure, squeezing and throbbing. Symptom is aggravated by bright lights, weather and perfumes or food smells. Relieving factors include darkness, OTC meds and Botox. headache Location is enti re head, frontal left and JAW. There is radiation to neck and shoulders. The patient describes it as debilitating, sharp, squeezing, superficial and worst ever. Symptom is aggravated by anxiety, bright lights, noise, stress and weather. Relieving factors include bath, darkness, ice, massage, sleep and stretching. Functional Status Date Functional Assessmen t No Information Instructions Date Instruction Additional Infor sixto Follow up in the cli brian as needed.Follow up for the physical therapy evaluation and treatment for cervicalgia. Related to Spondylosis w/o myelopathy or radiculopathy, cervical region -Follow up with CRF left C2,3,4 in 1-2 weeks -Follow up in the clinic as needed Related to Spondylosis w/o myelopathy or radiculopathy, cervical region Follow up with a cer vical radio frequency ablation if 80% or greater pain relief reported. Related to Spondylosis w/o myelopathy or radiculopathy, cervical region Follow up for the CM BB-C in 1-2 weeks if pain relief of more than 80%.Consider SHAHRIAR if pain persists. Related to Spondylosis w/o myelopathy of cervical region -Repeat injection if today's was successful, plan for a series If unsuccessful, will consider a cervical medial branch block/radiofrequency procedure-Follow up in clinic Related to Radiculopathy, cervical region Same plan of care as statement for above diagnosis, no changes Related to Cervicalgia Same plan of care as statement for above diagnosis, no changes Related to Cervicalgia Same plan of care as statement for above diagnosis, no changes Related to Headache -Continue with sched uled Cervical Epidural Steroid Injection, discuss recommended level to C5-C6 based on new cervical MRI done on 09/28/2021-Continue outside medications as prescribed, NO medication ordered today-Consider Cervical Medial Branch Block at C2,3,4 with radiofrequency ablation if epidural steroid injections unsuccessful-follow up 2-3 weeks after cervical epidural injection The risks and benefits of the procedure will be reviewed with the physician on the day of the procedure. Related to Radiculopathy, cervical region Same plan of care as statement for above diagnosis, no changes Related to Spinal stenosis, cervical region Same plan of care as statement for above diagnosis, no changes Related to Other cervical disc degeneration of cervical region - continue to addres s migraine with neurologist - order MRI of the cervical spine at [facility] - schedule cervical epidural steroid injection at C6-7, will plan for a series if successful. If unsuccessful, will consider a cervical medial branch block/radiofrequency procedure- refer to physical therapy - no medications prescribed today, continue with current medications as prescribed per outside provider- return in one month with advanced practice provider to discuss imaging and plan of care moving forward The risks and benefits of the procedure will be reviewed with the physician on the day of the procedure. Related to Cervicalgia Same plan of care as statement for above diagnosis, no changes Related to Lung cancer NOS Same plan of care as statement for above diagnosis, no changes Related to Headache Prescribed activity/exercise edu cation Related to Body mass index [BMI] 30.0-30.9, adult Dietary needs education Related to Body mass index [BMI] 30.0-30.9, adult Assessments Type Assessment Date No Information Patient Care Teams Name Effective Dates (start - stop) Status Members No Information
== END 2024-07-21 20:16 | disposition home or self-care (01) ==
PROVIDERS: PCP Nurse Practitioner Family; Visit Provider Internal Medicine
DX: G47.33 Obstructive sleep apnea (adult) (pediatric) (principal)
CPT/HCPCS: 95810